=== PATIENT | female | born 1950 | race Caucasian/White ===

== ENCOUNTER 2020-05-26 13:00 | Outpatient (REF) | payer MEDICARE, OTHER, SELFPAY ==
--- NOTE | 2020-05-26 13:45 | XR_ITS ---
EXAMINATION: XR CHEST CLINICAL INFORMATION: Chest pain. COMPARISON: Chest 11/20/2019 TECHNIQUE: 2 views of the chest were obtained. FINDINGS: The lungs are well-expanded and clear of acute process. The heart size and pulmonary vascularity is normal. No gross bony abnormality seen. XR/XR chest 2V IMPRESSION: Unremarkable chest exam
== END 2020-05-26 13:01 | disposition home or self-care (01) ==
LOC: HO.LAB 13:00
PROVIDERS: PCP Internal Medicine; Referring Provider Hospitalist; Visit Provider Hospitalist
DX: J98.4 Other disorders of lung (principal); J45.909 Unspecified asthma, uncomplicated
CPT/HCPCS: 71046; 99212

== ENCOUNTER 2020-09-10 13:26 | Outpatient (REF) | payer OTHER, SELFPAY ==
--- NOTE | ~2020-09-10 | MM_ITS ---
EXAMINATION: MM SCREENING DIGITAL BREAST TOMOSYNTHESIS, BILATERAL CLINICAL INFORMATION: Screening. Asymptomatic. The lifetime risk of breast cancer based on the Tyrer-Cuzick Model is 4.2%. COMPARISON: Mammography: 05/15/2019 and studies dating back to 02/23/2010 TECHNIQUE: Digital breast tomosynthesis is performed in both the craniocaudal and mediolateral oblique views along with computer-aided detection (CAD). Synthesized 2D images are generated from the tomosynthesis. FINDINGS: The breasts are heterogeneously dense, which may obscure small masses (ACR BI-RADS breast composition Category c). There is stable appearance of the right breast with no new suspicious findings. Within the central and inferior aspect of the left breast there are 2 partially circumscribed densities approximately 5 cm from the nipple. These are only seen on mediolateral oblique projection. One measures approximately 8 x 5 mm in size and the other measures approximately 6 mm in diameter. Spot compression films are recommended. MM/MM tomosynthesis screening BI IMPRESSION: Left breast densities for further evaluation as described. ASSESSMENT: BI-RADS 0: Incomplete - Need Additional Imaging Evaluation RECOMMENDATION: 1. Additional views of the left breast. 2. Targeted ultrasound if warranted after review of the additional views. 3. Radiology department staff will contact the patient for additional imaging. This patient's information was entered into a reminder system with a target due date for their next mammogram.
== END 2020-09-10 13:27 | disposition home or self-care (01) ==
LOC: HO.MAMMO 13:26
PROVIDERS: PCP Internal Medicine; Visit Provider Internal Medicine
DX: Z12.31 Encounter for screening mammogram for malignant neoplasm of breast (principal)
CPT/HCPCS: 77063; 77067

== ENCOUNTER 2020-09-18 08:52 | Outpatient (REF) | payer MEDICARE, OTHER, SELFPAY ==
--- NOTE | ~2020-09-18 | MM_ITS ---
EXAMINATION: MM DIAGNOSTIC DIGITAL BREAST TOMOSYNTHESIS, LEFT US DIAGNOSTIC ULTRASOUND BREAST, LEFT CLINICAL INFORMATION: Recall from screening for asymmetric densities on MLO view central and lower breast. No CC correlate. TC score 4%. COMPARISON: Mammography: 09/10/2020 and prior studies dating back to 06/28/2012 TECHNIQUE: Digital breast tomosynthesis is performed. 2D images are generated from the tomosynthesis. The following views are obtained: Spot MLO, ML x2. Ultrasound left breast is performed circumferentially with additional targeting in the area of recent mammographic concern. Grayscale imaging and color Doppler are performed without and with harmonics. FINDINGS: The breasts are heterogeneously dense, which may obscure small masses (ACR BI-RADS breast composition Category c). The additional views show scattered fibroglandular tissue similar to multiple prior exams dating back to 2012. There is no developing density or interval mass or architectural abnormality. Ultrasound left breast demonstrates no cystic or solid mass or architectural abnormality. No focal duct ectasia. No skin thickening. Results are discussed with the patient at time of visit. MM/MM tomosynthesis added views L IMPRESSION: 1. Additional views show fibroglandular pattern similar to prior exams. 2. Unremarkable left breast ultrasound. ASSESSMENT: BI-RADS 2: Benign RECOMMENDATION: Routine annual mammography screening. This patient's information was entered into a reminder system with a target due date for their next mammogram.
== END 2020-09-18 08:53 | disposition home or self-care (01) ==
LOC: HO.MAMMO 08:52
PROVIDERS: Visit Provider Internal Medicine
DX: R92.2 Inconclusive mammogram (principal)
CPT/HCPCS: 76642; 77061; 77065

== ENCOUNTER 2021-01-15 10:30 | Outpatient (REF) | payer MEDICARE, OTHER, SELFPAY ==
[2021-01-15 14:01] LABS: Hematocrit 37.3 % (37-47); Hemoglobin 12.1 g/dl (12.0-16.0); Mean Corpuscular HGB Conc 32.4 g/dl (31.0-35.0); Mean Corpuscular Hemoglobin 29.4 pg (27.0-33.0); Mean Corpuscular Volume 90.8 fL (80-98); Mean Platelet Volume 11.2 fL (9.4-12.3); Platelet Count 281 X10*3/uL (160-400); Red Blood Count 4.11 X10*6/uL (4.20-5.50); Red Cell Distribution Width 13.3 % (11.0-16.0); White Blood Count 4.8 X10*3/uL (4.8-10.8)
[2021-01-15 14:04] LABS: Appearance Urine CLEAR; Color Urine YELLOW; Glucose Urine UA NEG (NEG); Leukocyte Esterase Urine 1+ (NEG); Nitrite Urine NEG (NEG); Urine Blood NEG (NEG); Urine Ketones NEG (NEG); Urine Protein NEG (NEG-TRACE)
[2021-01-15 14:19] LABS: RBC Urine 0 /HPF (0); Squamous Epithelial Cell Urine 2+ /LPF
[2021-01-15 15:22] LABS: Alanine Aminotransferase 15 U/L (0-31); Albumin Level 4.3 g/dL (3.5-5.0); Alkaline Phosphatase 57 U/L (39-117); Anion Gap 12 (12-20); Aspartate Amino Transferase 20 U/L (5-31); Bilirubin Total 0.8 mg/dL (0.0-1.0); Blood Urea Nitrogen 25 mg/dL (9-16); Calcium 9.4 mg/dL (8.4-10.2); Carbon Dioxide 26 mmol/L (22-29); Chloride 108 mmol/L (96-108); Cholesterol 223 mg/dL; Estimated Glomerular Filt Rate 58; Glucose Fasting 77 mg/dL (60-99); HDL Cholesterol 112 mg/dL; LDL Cholesterol Calculated 104 mg/dl; Potassium 4.5 mmol/L (3.3-5.1); Sodium 141 mmol/L (135-145); Total Protein 6.6 g/dL (6.5-8.0); Triglycerides 39 mg/dL
[2021-01-15 15:43] LABS: TSH reflex Free T4 2.08 uIU/mL (0.32-4.0)
== END 2021-01-15 10:31 | disposition home or self-care (01) ==
LOC: HO.HMGCLDS 10:30
PROVIDERS: PCP Internal Medicine; Visit Provider Internal Medicine
DX: Z00.00 Encounter for general adult medical examination without abnormal findings (principal); E78.00 Pure hypercholesterolemia, unspecified; J45.909 Unspecified asthma, uncomplicated; J98.4 Other disorders of lung
CPT/HCPCS: 36415; 80053; 80061; 81001; 84443; 85027

== ENCOUNTER → 2021-03-01 12:54 | Outpatient (BNVA) | payer MEDICARE, OTHER, SELFPAY | PROVIDERS: PCP Internal Medicine; Visit Provider Hospitalist | DX: J45.909 Unspecified asthma, uncomplicated (principal); J98.4 Other disorders of lung; J30.9 Allergic rhinitis, unspecified | CPT/HCPCS: 99212 ==

== ENCOUNTER 2021-04-16 14:46 | Outpatient (REF) | payer MEDICARE, OTHER, SELFPAY ==
[2021-04-16 16:25] LABS: Influenza A PCR NEGATIVE (Negative); Influenza B PCR NEGATIVE (Negative); Resp Syncy Virus RNA Qual PCR NEGATIVE (Negative); SARS COV2 PCR INHOUSE NEGATIVE (Negative)
== END 2021-04-16 14:47 | disposition home or self-care (01) ==
LOC: HO.LNP 14:46
PROVIDERS: Visit Provider Internal Medicine
DX: Z20.822 Contact with and (suspected) exposure to COVID-19 (principal); R43.9 Unspecified disturbances of smell and taste
CPT/HCPCS: 0241U

== ENCOUNTER 2021-09-13 11:06 | Outpatient (REF) | payer MEDICARE, OTHER, SELFPAY ==
--- NOTE | ~2021-09-13 | MM_ITS ---
EXAMINATION: MM SCREENING DIGITAL BREAST TOMOSYNTHESIS, BILATERAL CLINICAL INFORMATION: Screening. Asymptomatic. The lifetime risk of breast cancer based on the Tyrer-Cuzick Model is 5%. COMPARISON: Mammography: 09/18/2020, 09/10/2020, 05/15/2019, 05/14/2018, 05/11/2017 TECHNIQUE: Digital breast tomosynthesis is performed in both the craniocaudal and mediolateral oblique views along with computer-aided detection (CAD). Synthesized 2D images are generated from the tomosynthesis. Additional left MLO view is provided. FINDINGS: There are scattered areas of fibroglandular density (ACR BI-RADS breast composition Category b). There are no significant masses, abnormal calcifications, or other abnormalities. Parenchymal pattern is similar to prior studies. No developing density or architectural abnormality. The axilla and skin contours are unremarkable. MM/MM tomosynthesis screening BI IMPRESSION: No mammographic evidence of malignancy. ASSESSMENT: BI-RADS 1: Negative RECOMMENDATION: Routine annual mammography screening. This patient's information was entered into a reminder system with a target due date for their next mammogram.
== END 2021-09-13 11:07 | disposition home or self-care (01) ==
LOC: HO.MAMMO 11:06
PROVIDERS: PCP Internal Medicine; Visit Provider Internal Medicine
DX: Z12.31 Encounter for screening mammogram for malignant neoplasm of breast (principal)
CPT/HCPCS: 77063; 77067

== ENCOUNTER 2022-01-18 09:09 | Outpatient (REF) | payer MEDICARE, OTHER, SELFPAY ==
[2022-01-18 12:11] LABS: Hematocrit 36.5 % (37.0-47.0); Mean Corpuscular HGB Conc 32.9 g/dl (31.0-35.0); Mean Corpuscular Hemoglobin 29.4 pg (27.0-33.0); Mean Corpuscular Volume 89.5 fL (80.0-98.0); Mean Platelet Volume 10.4 fL (9.4-12.3); Platelet Count 276 X10*3/uL (160-400); Red Blood Count 4.08 X10*6/uL (4.20-5.50); Red Cell Distribution Width 12.4 % (11.0-16.0); White Blood Count 4.7 X10*3/uL (4.8-10.8)
[2022-01-18 12:25] LABS: Alanine Aminotransferase 14 U/L (0-31); Albumin Level 4.1 g/dL (3.5-5.0); Alkaline Phosphatase 57 U/L (39-117); Anion Gap 13 (12-20); Aspartate Amino Transferase 18 U/L (5-31); Bilirubin Total 0.6 mg/dL (0.0-1.0); Blood Urea Nitrogen 29 mg/dL (9-16); Calcium 9.8 mg/dL (8.4-10.2); Carbon Dioxide 24 mmol/L (22-29); Chloride 107 mmol/L (96-108); Cholesterol 221 mg/dL; Estimated Glomerular Filt Rate 44; Glucose Fasting 83 mg/dL (60-99); HDL Cholesterol 75 mg/dL; LDL Cholesterol Calculated 133 mg/dl; Potassium 4.4 mmol/L (3.3-5.1); Sodium 140 mmol/L (135-145); Total Protein 6.6 g/dL (6.5-8.0); Triglycerides 68 mg/dL
[2022-01-18 12:37] LABS: Vitamin D 25-OH Total 59.4 ng/mL (>30)
== END 2022-01-18 09:10 | disposition home or self-care (01) ==
LOC: HO.HMGCLDS 09:09
PROVIDERS: PCP Internal Medicine; Visit Provider Internal Medicine
DX: Z00.00 Encounter for general adult medical examination without abnormal findings (principal); E78.00 Pure hypercholesterolemia, unspecified; M85.80 Other specified disorders of bone density and structure, unspecified site
CPT/HCPCS: 36415; 80053; 80061; 82306; 85027

== ENCOUNTER 2022-02-11 14:42 | Outpatient (REF) | payer MEDICARE, OTHER, SELFPAY ==
--- NOTE | ~2022-02-11 | US_ITS ---
EXAMINATION: US RETROPERITONEAL LIMITED (RENAL ONLY) CLINICAL INFORMATION: Chronic kidney disease, stage 3, unspecified. COMPARISON: None TECHNIQUE: Real-time imaging of the kidneys. FINDINGS: RIGHT KIDNEY: 10.1 x 4.6 x 4.9 cm (SAG x AP x TRV). The kidney is normal in size, contour, and echogenicity. Renal cortical thickness is normal. No focal parenchymal lesions or hydronephrosis. A cortically based echogenic focus medially in the mid pole measures a 0.2 cm. Mild pelviectasis/extra renal pelvis. LEFT KIDNEY: 9.0 x 3.5 x 4.3 cm (SAG x AP x TRV). The kidney is normal in size, contour, and echogenicity. Renal cortical thickness is normal. No calculi or focal parenchymal lesions. No hydronephrosis. US/US renal BI IMPRESSION: Nonobstructing tiny right intrarenal calculus/calcification. Mild right pelviectasis/extra renal pelvis.
== END 2022-02-11 14:43 | disposition home or self-care (01) ==
LOC: HO.US 14:42
PROVIDERS: Visit Provider Internal Medicine
DX: N18.30 Chronic kidney disease, stage 3 unspecified (principal)
CPT/HCPCS: 76775

== ENCOUNTER 2022-02-28 14:12 | Outpatient (REF) | payer MEDICARE, OTHER, SELFPAY ==
--- NOTE | ~2022-02-28 | XR_ITS ---
EXAMINATION: XR CHEST CLINICAL INFORMATION: Follow-up COMPARISON: May 26, 2020 TECHNIQUE: 2 views of the chest were obtained. FINDINGS: No significant abnormality is noted involving the heart, lungs, mediastinum, bony thorax or soft tissues. XR/XR chest 2V IMPRESSION: No acute disease.
== END 2022-02-28 14:13 | disposition home or self-care (01) ==
LOC: HO.XRAY 14:12
PROVIDERS: PCP Internal Medicine; Visit Provider Hospitalist
DX: J98.4 Other disorders of lung (principal); J45.909 Unspecified asthma, uncomplicated; Z79.899 Other long term (current) drug therapy
CPT/HCPCS: 71046; 99212

== ENCOUNTER 2022-03-08 09:35 | Outpatient (REF) | payer MEDICARE, OTHER, SELFPAY ==
[2022-03-08 12:13] LABS: Anion Gap 15 (12-20); Blood Urea Nitrogen 27 mg/dL (9-16); Calcium 9.5 mg/dL (8.4-10.2); Carbon Dioxide 24 mmol/L (22-29); Chloride 104 mmol/L (96-108); Estimated Glomerular Filt Rate 50; Glucose Random 84 mg/dL (60-115); Potassium 4.4 mmol/L (3.3-5.1); Sodium 139 mmol/L (135-145)
[2022-03-08 12:16] LABS: Appearance Urine Clear; Color Urine Yellow; Glucose Urine UA Negative (Negative); Leukocyte Esterase Urine Small (1+) (Negative); Nitrite Urine Negative (Negative); Specific Gravity - Urine 1.015 (1.005-1.025); UMIC TRIGGER UA YES; Urine Blood Negative (Negative); Urine Ketones Negative (Negative); Urine Protein Negative (Neg-Trace)
[2022-03-08 12:44] LABS: Bacteria Urine None Seen (None Seen); Hyaline Casts Urine 0-2 /LPF (0-2); RBC Urine 0-2 /HPF (0-2); Squamous Epithelial Cell Urine 0-2 /HPF (0-2); WBC Urine 0-5 /HPF (0-5)
== END 2022-03-08 09:36 | disposition home or self-care (01) ==
LOC: HO.HMGCLDS 09:35
PROVIDERS: PCP Internal Medicine; Visit Provider Internal Medicine
DX: I12.9 Hypertensive chronic kidney disease with stage 1 through stage 4 chronic kidney disease, or unspecified chronic kidney disease (principal); N18.30 Chronic kidney disease, stage 3 unspecified
CPT/HCPCS: 36415; 80048; 81001

== ENCOUNTER 2022-04-21 10:05 | Outpatient (REF) | payer MEDICARE, OTHER, SELFPAY ==
[2022-04-21 11:47] LABS: Alanine Aminotransferase 13 U/L (0-31); Albumin Level 4.2 g/dL (3.5-5.0); Alkaline Phosphatase 69 U/L (39-117); Anion Gap 11 (12-20); Aspartate Amino Transferase 19 U/L (5-31); Bilirubin Total 0.6 mg/dL (0.0-1.0); Blood Urea Nitrogen 25 mg/dL (9-16); Calcium 9.7 mg/dL (8.4-10.2); Carbon Dioxide 27 mmol/L (22-29); Chloride 104 mmol/L (96-108); Cholesterol 219 mg/dL; Estimated Glomerular Filt Rate 48; Glucose Fasting 94 mg/dL (60-99); HDL Cholesterol 86 mg/dL; LDL Cholesterol Calculated 121 mg/dl; Potassium 4.1 mmol/L (3.3-5.1); Sodium 138 mmol/L (135-145); Total Protein 6.8 g/dL (6.5-8.0); Triglycerides 61 mg/dL
== END 2022-04-21 10:06 | disposition home or self-care (01) ==
LOC: HO.HMGCLDS 10:05
PROVIDERS: PCP Internal Medicine; Visit Provider Internal Medicine
DX: E78.00 Pure hypercholesterolemia, unspecified (principal); I10 Essential (primary) hypertension
CPT/HCPCS: 36415; 80053; 80061

== ENCOUNTER → 2022-08-18 09:10 | Outpatient (BNVA) | payer MEDICARE, OTHER, SELFPAY | PROVIDERS: PCP Internal Medicine; Visit Provider Nurse Practitioner Family | DX: N20.0 Calculus of kidney (principal) | CPT/HCPCS: 99202 ==

== ENCOUNTER → 2022-08-25 13:10 | Outpatient (BNVA) | payer MEDICARE, OTHER, SELFPAY | PROVIDERS: PCP Internal Medicine; Visit Provider Hospitalist | DX: J45.909 Unspecified asthma, uncomplicated (principal); J98.4 Other disorders of lung; R01.1 Cardiac murmur, unspecified | CPT/HCPCS: 99212 ==

== ENCOUNTER 2022-09-15 12:47 | Outpatient (REF) | payer MEDICARE, OTHER, SELFPAY ==
--- NOTE | ~2022-09-15 | MM_ITS ---
EXAMINATION: MM SCREENING DIGITAL BREAST TOMOSYNTHESIS, BILATERAL CLINICAL INFORMATION: Screening. Asymptomatic. The lifetime risk of breast cancer based on the Tyrer-Cuzick Model is 5.1%. COMPARISON: Mammography: September 13, 2021 and studies dating back to February 04, 2016 TECHNIQUE: Digital breast tomosynthesis is performed in both the craniocaudal and mediolateral oblique views along with computer-aided detection (CAD). Synthesized 2D images are generated from the tomosynthesis. FINDINGS: The breasts are heterogeneously dense, which may obscure small masses (ACR BI-RADS breast composition Category c). There are no significant masses, abnormal calcifications, or other abnormalities. MM/MM tomosynthesis screening BI IMPRESSION: No significant changes from prior exam. ASSESSMENT: BI-RADS 1: Negative RECOMMENDATION: Routine annual mammography screening. This patient's information was entered into a reminder system with a target due date for their next mammogram.
== END 2022-09-15 12:48 | disposition home or self-care (01) ==
LOC: HO.MAMMO 12:47
PROVIDERS: PCP Internal Medicine; Visit Provider Internal Medicine
DX: Z12.31 Encounter for screening mammogram for malignant neoplasm of breast (principal)
CPT/HCPCS: 77063; 77067

== ENCOUNTER 2022-09-15 14:31 | Outpatient (REF) | payer MEDICARE, OTHER, SELFPAY ==
--- NOTE | ~2022-09-15 | US_ITS ---
EXAMINATION: US RETROPERITONEAL LIMITED (RENAL ONLY) CLINICAL INFORMATION: Calculus of kidney. COMPARISON: Ultrasound retroperitoneal limited (renal only) 02/11/2022. TECHNIQUE: Real-time imaging of the kidneys. FINDINGS: RIGHT KIDNEY: 9.6 x 3.7 x 4.6 cm (SAG x AP x TRV). The kidney is normal in size, contour, and echogenicity. Renal cortical thickness is normal. No calculi or focal parenchymal lesions. No hydronephrosis. 5 mm linear echogenic focus without shadowing or 2.0 in the right upper pole may reflect a small calculus or vascular calcification. LEFT KIDNEY: 8.3 x 4.4 x 3.9 cm (SAG x AP x TRV). The kidney is normal in size, contour, and echogenicity. Renal cortical thickness is normal. No calculi or focal parenchymal lesions. No hydronephrosis. US/US renal BI IMPRESSION: 5 mm linear echogenic focus in the upper right kidney may reflect a small calculus or vascular calcification. No hydronephrosis.
== END 2022-09-15 14:32 | disposition home or self-care (01) ==
LOC: HO.US 14:31
PROVIDERS: PCP Internal Medicine; Visit Provider Internal Medicine
DX: Z12.31 Encounter for screening mammogram for malignant neoplasm of breast (principal); N20.0 Calculus of kidney; I12.9 Hypertensive chronic kidney disease with stage 1 through stage 4 chronic kidney disease, or unspecified chronic kidney disease; N18.30 Chronic kidney disease, stage 3 unspecified; E78.00 Pure hypercholesterolemia, unspecified
CPT/HCPCS: 76775; 77063; 77067

== ENCOUNTER 2022-11-04 11:35 | Outpatient (REF) | payer MEDICARE, OTHER, SELFPAY | END 2022-11-04 11:36 | disposition home or self-care (01) | LOC: HO.HMGCLDS 11:35 | PROVIDERS: PCP Internal Medicine; Visit Provider Internal Medicine | DX: J45.909 Unspecified asthma, uncomplicated (principal); I10 Essential (primary) hypertension; E78.00 Pure hypercholesterolemia, unspecified | CPT/HCPCS: 36415; 80053; 80061; 84443; 85025 ==

== ENCOUNTER 2022-11-07 11:17 | Outpatient (AMB) | payer MEDICARE, OTHER, SELFPAY ==
[2022-11-07 11:19] VITALS: BP 118/74; PULSE 68; O2SAT 95; BMI 20.5
--- NOTE | 2022-11-07 11:19 | MHC.PC.OV ---
Vital Signs 11/07/22 11:19 Height 5 ft 3 in Weight 116 lb BMI 20.5 BP 118/74 Blood Pressure Location Lt brachial Position Sitting Pulse 68 Pulse Source Pulse Oximeter Pulse Oximetry (%) 95 Oxygen Delivery Method Room Air Intake Visit Reasons: 6 month follow up Hyperlipidemia Intake Note: Pt is here today for 6 months follow up visit . Allergies seasonal Adverse Reaction (Severe, Uncoded 11/07/22 11:19) seasonal allergies Tobacco use date assessed: 11/07/22 Fall risk assessment: No Falls in past year Last assessed Fall Risk: 11/07/22 Dental Screening Dental Screen Date: 11/07/22 Did you have a dental visit in the last 12 months?: Yes Did you have a dental problem in the last 6 months where you did not have access to dental care?: No Was dental information given to patient?: Patient has dentist HPI 6 month follow up Hyperlipidemia HPI Details Pt presents for f/u hyperlipid, stable on statin. Pt c/o anxiety due to her daughter in law and son in the long-term. [facility] Medical History Annual physical exam Asthma Chronic allergic rhinitis Chronic restrictive lung disease Hypercholesteremia Mammogram normal Murmur Normal colonoscopy Osteopenia Family History Father Hypertension Mother No problems noted. Brother Mental health disorder Social History Housing: House Patient Tobacco Use Status: Never used Tobacco e-Cigarette/Vaping Use: Never Used Current occupational status: retired Cognitive needs: No Hearing needs: No Vision needs: Yes Questionnaire PHQ-9 Over the last 2 weeks, how often have you been bothered by any of the following problems? 1. Little interest or pleasure in doing things: not at all 2. Feeling down, depressed, or hopeless: not at all 3. Trouble falling or staying asleep, or sleeping too much: more than half the days 4. Feeling tired or having little energy: not at all 5. Poor appetite or overeating: not at all 6. Feeling bad about yourself - or that you are a failure or have let yourself or your family down: not at all 7. Trouble concentrating on things, such as reading the newspaper or watching television: not at all 8. Moving or speaking so slowly that other people could have noticed. Or the opposite - being so fidgety or restless that you have been moving around a lot more than usual: not at all 9. Thoughts that you would be better off or of hurting yourself in some way: not at all Total score: 2 Depression Screening Interpretation: Negative Source: Developed by Drs. Bacilio Broderick, Sherin Ohara, Sameer Saeed and colleagues, with an educational lópez from [employer]. Thrive Questionnaire Date Thrive assessed: 11/07/22 I am a: Patient What is your living situation today?: I have a steady place to live Within the past 12 months, did the food you bought not last and you didn't have the money to get more?: Never true Within the past 12 months, did you worry whether your food would run out before you got money to buy more?: Never true Do you have trouble paying for medicines?: No Do you have trouble getting transportation to medical appointments?: No Do you have trouble paying your heating and electricity bill?: No Do you have trouble taking care of your child, family member or friend?: No Do you have trouble with day-to-day activities such as bathing, preparing meals, shopping, managing finances, etc.?: No Are you currently unemployed and looking for a job?: No Are you interested in more education?: No Please select the resources that you would like help with: None Currently or been in a relationship where the following occur: no concerns reported AUDIT C Alcohol Use Questionnaire (AUDIT-C) 1. How often do you have a drink containing alcohol?: Never 3. How often do you have six or more drinks on one occasion?: Never Total Score: 0 SALENA-7 AMB Questionnaire SALENA-7 Date SALENA - 7 assessed: 11/07/22 Feeling nervous, anxious, or on edge: 0 = Not at all Not being able to stop or control worryin = Not at all Worrying too much about different things: 0 = Not at all Trouble relaxin = Not at all Being so restless that it is hard to sit still: 0 = Not at all Becoming easily annoyed or irritable: 0 = Not at all Feeling afraid as if something awful might happen: 0 = Not at all Total SALENA-7 score (0-4 normal; 5-9 mild; 10-14 moderate; 15-21 severe): 0 Source: Developed by Drs. Bacilio Broderick, Sherin Ohara, Sameer Saeed and colleagues, with an educational lópez from [employer]. Physical exam (Primary Care) Vital Signs: Last Vital Signs Pulse 68 11/07/22 11:19 BP 118/74 11/07/22 11:19 Pulse Ox 95 11/07/22 11:19 Oxygen Delivery Method Room Air 11/07/22 11:19 BMI result Body Mass Index 20.5 Tobacco/Smoking Status: Tobacco use Status Tobacco use date assessed 11/07/22 11/07/22 11:26 Patient Tobacco Use Status Never used Tobacco 11/07/22 11:26 e-Cigarette/Vaping Use Never Used 11/07/22 11:26 PHQ-9: PHQ-9 Score PHQ-9: Total score 2 11/07/22 11:28 Depression Screening Interpretation: Negative Thrive Assessment: Date of Thrive Assessment Date Thrive assessed 11/07/22 11/07/22 11:28 Currently or been in a relationship where the following occur: no concerns reported Const General: no acute distress HENMT Head: Yes normal to inspection Ears: hearing grossly normal bilaterally Mouth: Normal oral and palatal mucosa present Throat: Yes posterior oropharynx normal Eyes General: appearance normal, both eyes and all related structures Neck Neck: Yes no lymphadenopathy and Yes supple Resp Effort & Inspection: normal respiratory effort Auscultation: clear to auscultation bilaterally Cardio Rhythm: regular rhythm Heart sounds: S1 normal heart sound present and S2 normal heart sound present GI Inspection: Yes normal to inspection Percussion: Yes normal to percussion Assessment and Plan Assessment & Plan (1) Hypercholesteremia: Code(s): E78.00 - Pure hypercholesterolemia, unspecified Plan: cont statin (2) Chronic restrictive lung disease: Comment: f/u pulmonology Code(s): J98.4 - Other disorders of lung (3) Anemia: Code(s): D64.9 - Anemia, unspecified Plan: check Iron and vit B 12, monitor CBC in 3 months (4) Nephrolithiasis: Comment: small nonobstructing kidney stone on US 02/19, recheck in 6 months Code(s): N20.0 - Calculus of kidney (5) CKD (chronic kidney disease) stage 3, GFR 30-59 ml/min: Code(s): N18.30 - Chronic kidney disease, stage 3 unspecified Plan: monitor renal function (6) Chronic allergic rhinitis: Code(s): J30.9 - Allergic rhinitis, unspecified (7) Anxiety: Comment: f/u with psychiatry Code(s): F41.9 - Anxiety disorder, unspecified Orders: Orders Vitamin B12 and Folate Today D64.9 - Anemia, unspecified IRON PROFILE Today D64.9 - Anemia, unspecified Vitamin B6 Today D64.9 - Anemia, unspecified Comprehensive Met. Panel 3 Months D64.9 - Anemia, unspecified, J98.4 - Other disorders of lung, N18.30 - Chronic kidney disease, stage 3 unspecified IRON PROFILE 3 Months D64.9 - Anemia, unspecified, J98.4 - Other disorders of lung, N18.30 - Chronic kidney disease, stage 3 unspecified Complete Blood Count Auto Diff 3 Months D64.9 - Anemia, unspecified, N18.30 - Chronic kidney disease, stage 3 unspecified Coding Level of Care Code Est Pt Level 4 (81519) Diagnoses Hypercholesteremia E78.00 Chronic restrictive lung disease J98.4 Anemia D64.9 Nephrolithiasis N20.0 CKD (chronic kidney disease) stage 3, GFR 30-59 ml/min N18.30 Chronic allergic rhinitis J30.9 Anxiety F41.9
== END 2022-11-07 12:00 | disposition home or self-care (01) ==
PROVIDERS: Visit Provider Internal Medicine
DX: N18.30 Chronic kidney disease, stage 3 unspecified (principal); F41.9 Anxiety disorder, unspecified; E78.00 Pure hypercholesterolemia, unspecified; J98.4 Other disorders of lung; D64.9 Anemia, unspecified; N20.0 Calculus of kidney; J30.9 Allergic rhinitis, unspecified
CPT/HCPCS: 99214

== ENCOUNTER 2022-11-07 11:58 | Outpatient (REF) | payer MEDICARE, OTHER, SELFPAY ==
[2022-11-13 13:58] LABS: Vitamin B6 132.6 ng/mL (2.1-21.7)
== END 2022-11-07 11:59 | disposition home or self-care (01) ==
LOC: HO.HMGCLDS 11:58
PROVIDERS: PCP Internal Medicine; Visit Provider Internal Medicine
DX: D64.9 Anemia, unspecified (principal)
CPT/HCPCS: 36415; 82607; 82746; 83540; 84207

== ENCOUNTER 2022-12-02 13:22 | Outpatient (REF) | payer MEDICARE, OTHER, SELFPAY ==
[2022-12-02 16:27] LABS: Appearance Urine Clear; Color Urine Yellow; Glucose Urine UA Negative (Negative); Leukocyte Esterase Urine Small (1+) (Negative); Nitrite Urine Negative (Negative); PH 5.5 (5.0-9.0); UMIC TRIGGER UA YES; Urine Blood Negative (Negative); Urine Ketones Trace mg/dL (Negative); Urine Protein Negative (Neg-Trace)
[2022-12-02 16:49] LABS: Bacteria Urine None Seen (None Seen); Squamous Epithelial Cell Urine 0-2 /HPF (0-2); WBC Urine 0-5 /HPF (0-5)
[2022-12-02 16:51] LABS: RBC Urine 0-2 /HPF (0-2)
== END 2022-12-02 13:23 | disposition home or self-care (01) ==
LOC: HO.HMGCLDS 13:22
PROVIDERS: PCP Internal Medicine; Visit Provider Internal Medicine
DX: N18.30 Chronic kidney disease, stage 3 unspecified (principal); R82.90 Unspecified abnormal findings in urine
CPT/HCPCS: 81001; 87086

== ENCOUNTER 2023-01-10 10:17 | Outpatient (REF) | payer MEDICARE, OTHER, SELFPAY ==
[2023-01-10 13:33] LABS: MANUAL DIFF FLAG NO
[2023-01-10 13:51] LABS: Basophils Absolute Auto 0.1 X10*3/uL (0.0-0.2); Basophils Percent Auto 1.4 % (0-2); Eosinophils Absolute Auto 0.5 X10*3/uL (0.0-0.4); Eosinophils Percent Auto 8.9 % (0-4); Hemoglobin 12.1 g/dl (12.0-16.0); Imm Gran Abs Auto 0.01 X10*3/uL (0.00-0.03); Imm Gran Pct Auto 0.2 % (0.0-0.4); Lymphocytes Absolute Auto 1.6 X10*3/uL (1.2-4.9); Lymphocytes Percent Auto 31.3 % (20-40); Mean Corpuscular HGB Conc 31.8 g/dl (31.0-35.0); Mean Corpuscular Hemoglobin 27.9 pg (27.0-33.0); Mean Corpuscular Volume 87.6 fL (80.0-98.0); Monocytes Absolute Auto 0.5 X10*3/uL (0.1-1.2); Monocytes Percent Auto 9.7 % (2-11); Neutrophils Absolute Auto 2.5 x10*3/uL (2.0-8.3); Neutrophils Percent Auto 48.5 % (45-73); Platelet Count 280 X10*3/uL (160-400); Red Blood Count 4.34 X10*6/uL (4.20-5.50); Red Cell Distribution Width 13.4 % (11.0-16.0); White Blood Count 5.1 X10*3/uL (4.8-10.8)
[2023-01-10 14:04] LABS: Iron 84 mcg/dL (30-160); Percent Iron Saturation 29 % (15-50); Total Iron Binding Capacity 286 mcg/dL (228-428); Unsaturated Iron Binding 202 ug/dL
[2023-01-10 14:34] LABS: Folate 12.2 ng/mL (> or = 4.0); Vitamin B12 371 pg/mL (200-900)
== END 2023-01-10 10:18 | disposition home or self-care (01) ==
LOC: HO.HMGCLDS 10:17
PROVIDERS: PCP Internal Medicine; Visit Provider Internal Medicine
DX: D64.9 Anemia, unspecified (principal)
CPT/HCPCS: 36415; 82607; 82746; 83540; 85025

== ENCOUNTER 2023-01-13 11:04 | Outpatient (AMB) | payer MEDICARE, OTHER, SELFPAY ==
--- NOTE | 2023-01-13 11:19 | AM.OFFWIN_ITS ---
Intake Vital Signs 01/13/23 11:22 Height 5 ft 3 in Weight 118 lb BMI 20.9 BP 112/64 Blood Pressure Location Lt brachial Position Sitting Pulse 72 Pulse Source Pulse Oximeter Temp 97.9 F Temp Source Oral Pulse Oximetry (%) 98 Oxygen Delivery Method Room Air Intake Visit Reasons: EST/sinus infection Intake Note: Patient here for sinus infection for about 2 weeks. she states she has a hx of sinus issues. Patient Tobacco Use Status: Never used Tobacco Allergies seasonal Adverse Reaction (Severe, Uncoded 01/13/23 11:23) seasonal allergies Do you need a note to return to daycare/school/sports/work: No HPI HPI Comments History of Present Illness Details This is a 72-year-old female who presents to the office today for sick visit. Patient complaining of sinus pain/pressure and nasal congestion x3 weeks. Patient states she has a history of sinus issues in usually gets a sinus infection every fall. She states she has been utilizing [id number] antihistamines and decongestants without much relief. Patient states she started to have significant green rhinorrhea today, so she decided to come to the urgent care for further evaluation. She denies any fevers or chills. She denies any chest pain or shortness of breath. She denies any abdominal pain or nausea/vomiting/diarrhea. Patient is otherwise feeling well. [facility] Medical History Annual physical exam Asthma Chronic allergic rhinitis Chronic restrictive lung disease Hypercholesteremia Mammogram normal Murmur Normal colonoscopy Osteopenia Family History Father Hypertension Mother No problems noted. Brother Mental health disorder Social History Housing: House Patient Tobacco Use Status: Never used Tobacco e-Cigarette/Vaping Use: Never Used Current occupational status: retired Cognitive needs: No Hearing needs: No Vision needs: Yes Review of Systems Const All systems reviewed & are unremarkable except as noted in HPI and below Reports no additional complaints Eyes Reports no additional complaints ENT Reports no additional complaints Card Reports no additional complaints Resp Reports no additional complaints GI Reports no additional complaints Reports no additional complaints Musc Reports no additional complaints Skin/Breast Reports system reviewed and no additional complaints, except as documented Neuro Reports no additional complaints Psych Reports no additional complaints Endo Reports no additional complaints Ty/Lymph Reports no additional complaints Aller/Immun Reports no additional complaints Physical Exam Vital Signs: Last Vital Signs Temp 97.9 F 01/13/23 11:22 Pulse 72 01/13/23 11:22 BP 112/64 01/13/23 11:22 Pulse Ox 98 01/13/23 11:22 Oxygen Delivery Method Room Air 01/13/23 11:22 BMI result Body Mass Index 20.9 Const General: cooperative, healthy appearing, no acute distress and well developed Orientation/consciousness: patient oriented x3 HEENT Other: Mild frontal sinus tenderness to palpation. Head: Yes normal to inspection Ears: hearing grossly normal bilaterally General nose exam: Normal external nose present Mouth: Normal oral and palatal mucosa present Eyes General: appearance normal, both eyes and all related structures Pupils: Equal, round and reactive pupils present EOM: EOMs intact bilaterally Resp Effort & Inspection: normal respiratory effort and no respiratory distress Auscultation: clear to auscultation bilaterally Cardio Rate: regular rate Rhythm: regular rhythm Heart sounds: no gallops, no murmurs and no rubs Peripheral pulses: Peripheral pulses 2+ throughout GI Inspection: No distended Palpation (GI): Soft to palpation and nontender Auscultation: normal bowel sounds Skin General skin exam: no rashes or lesions noted Neuro General: patient oriented x3 Cranial nerves: Yes CN's II-XII intact bilaterally and Yes Equal, round and reactive pupils present Gait exam (Neuro): Normal gait present Motor exam (neuro): 5/5 motor strength present throughout Extrem General: Yes normal to inspection, Yes full ROM and Yes no clubbing, cyanosis or edema Psych Appearance: grossly normal Mental Status: mental status grossly normal Assessment & Plan Assessment & Plan (1) Acute bacterial rhinosinusitis: Code(s): J01.90 - Acute sinusitis, unspecified; B96.89 - Other specified bacterial agents as the cause of diseases classified elsewhere Plan: This is a 72-year-old female presenting to the office today complaining of persistent sinus pain/pressure, nasal congestion, and yellow green rhinorrhea x3 weeks. On physical examination, her vital signs are stable, she is overall nontoxic appearing, and her HEENT exam is completely within normal limits with the exception of mild frontal sinus tenderness to palpation. Given duration of patient's symptoms, patient likely has an acute bacterial rhinosinusitis. She was sent home with p.o. amoxicillin clavulanate twice daily times 10 days. Recommended symptomatic management including rest, increased fluids, advil/tylenol for pain/fever, and over the counter throat lozenges/decongestants. Patient advised to follow up here or go to the emergency room for worsening/persistent symptoms. Patient verbalized understanding and is agreeable with the plan. Medications: New amoxicillin-pot clavulanate 875-125 mg 1 tab PO BID 20 tabs 0RF Coding Level of Care Code Est Pt Level 3 (13773) Diagnoses Acute bacterial rhinosinusitis J01.90; B96.89
[2023-01-13 11:22] VITALS: BP 112/64; PULSE 72; TEMP 36.6; O2SAT 98; BMI 20.9
== END 2023-01-13 11:56 | disposition home or self-care (01) ==
PROVIDERS: PCP Internal Medicine; Visit Provider Physician Assistant Medical
DX: J01.90 Acute sinusitis, unspecified (principal); B96.89 Other specified bacterial agents as the cause of diseases classified elsewhere
CPT/HCPCS: 99213

== ENCOUNTER 2023-01-26 11:00 | Outpatient (AMB) | payer MEDICARE, OTHER, SELFPAY ==
--- NOTE | 2023-01-26 11:28 | MHC.OFFWIV ---
Intake Vital Signs 01/26/23 11:29 Height 5 ft 3 in Weight 117 lb BMI 20.7 BP 140/70 H Blood Pressure Location Lt brachial Position Sitting Pulse 72 Pulse Source Pulse Oximeter Temp 97.4 F Temp Source Temporal Artery Scan Pulse Oximetry (%) 95 Oxygen Delivery Method Room Air Intake Visit Reasons: EST/sinus inf already treated not getting better Intake Note: Pt is here c/o on going sinus infection. Pt states she finished her antibiotics and is not feeling better. Patient Tobacco Use Status: Never used Tobacco Allergies seasonal Adverse Reaction (Severe, Uncoded 01/26/23 11:32) seasonal allergies Do you need a note to return to daycare/school/sports/work: No HPI HPI Comments History of Present Illness Details 72-year-old female history of chronic sinusitis that presents for sinus infection. Patient was recently evaluated for course of Augmentin still experiencing significant symptoms. Patient states that typically she gets around of antibiotics and requires around of prednisone which covers her. She is in dorsal signs ingestion pressure drainage [facility] Medical History Annual physical exam Asthma Chronic allergic rhinitis Chronic restrictive lung disease Hypercholesteremia Mammogram normal Murmur Normal colonoscopy Osteopenia Family History Father Hypertension Mother No problems noted. Brother Mental health disorder Social History Housing: House Patient Tobacco Use Status: Never used Tobacco e-Cigarette/Vaping Use: Never Used Current occupational status: retired Cognitive needs: No Hearing needs: No Vision needs: Yes Review of Systems ENT Reports nasal congestion, Reports nasal discharge and Reports sinus pressure Physical Exam Vital Signs: Last Vital Signs Temp 97.4 F 01/26/23 11:29 Pulse 72 01/26/23 11:29 BP 140/70 H 01/26/23 11:29 Pulse Ox 95 01/26/23 11:29 Oxygen Delivery Method Room Air 01/26/23 11:29 BMI result Body Mass Index 20.7 HEENT Other: TTP over maxillary sinuses Assessment & Plan Assessment & Plan (1) Maxillary sinusitis, acute: Code(s): J01.00 - Acute maxillary sinusitis, unspecified Qualifiers: Recurrence: recurrent Qualified Code(s): J01.01 - Acute recurrent maxillary sinusitis Plan: Signs symptoms consistent with rhinosinusitis. Some data suggests course prednisone can help reduce inflammation given this is worker that is definitely reasonable to trial. Discharge instructions, follow up and treatment are discussed with patient in my usual fashion. Alternatives in treatment are also discussed. The patient will return for worsening symptoms or as needed. Advised that any labs/imaging ordered will be followed up on and contact made if further treatment needed. Counseled that patient's condition may require further evaluation and/or treatment. Symptoms of concern for worsening disorder discussed in detail in my customary manner. Patient does verbalize understanding of the plan, there are no apparent barriers to communication. The patient is given the opportunity to ask questions and have them answered to his/her satisfaction Medications: New prednisone 40 mg (2 x 20 mg) PO DAILY 5 days 10 tabs 0RF Coding Level of Care Code Est Pt Level 3 (64778) Diagnoses Acute recurrent maxillary sinusitis J01.01 Recurrence: recurrent
[2023-01-26 11:29] VITALS: BP 140/70; PULSE 72; TEMP 36.3; O2SAT 95; BMI 20.7
== END 2023-01-26 12:14 | disposition home or self-care (01) ==
PROVIDERS: PCP Internal Medicine; Visit Provider Physician Assistant
DX: J01.01 Acute recurrent maxillary sinusitis (principal)
CPT/HCPCS: 99213

== ENCOUNTER 2023-01-30 14:13 | Outpatient (REF) | payer MEDICARE, OTHER, SELFPAY ==
--- NOTE | ~2023-01-30 | US_ITS ---
EXAMINATION: US RETROPERITONEAL LIMITED (RENAL ONLY) CLINICAL INFORMATION: Calculus of kidney. COMPARISON: Ultrasound retroperitoneal limited (renal only) 09/15/2022 and 02/11/2022. TECHNIQUE: Real-time imaging of the kidneys. FINDINGS: RIGHT KIDNEY: 9.8 x 4.5 x 4.4 cm (SAG x AP x TRV). The kidney is normal in size, contour, and echogenicity. Renal cortical thickness is normal. No calculi or focal parenchymal lesions. No hydronephrosis. LEFT KIDNEY: 8.9 x 4.5 x 4.2 cm (SAG x AP x TRV). The kidney is normal in size, contour, and echogenicity. Renal cortical thickness is normal. No calculi or focal parenchymal lesions. No hydronephrosis. US/US renal BI IMPRESSION: Normal renal and bladder ultrasound.
== END 2023-01-30 14:14 | disposition home or self-care (01) ==
LOC: HO.US 14:13
PROVIDERS: PCP Internal Medicine; Visit Provider Nurse Practitioner Family
DX: N20.0 Calculus of kidney (principal)
CPT/HCPCS: 76775

== ENCOUNTER 2023-02-07 13:31 | Outpatient (REF) | payer MEDICARE, OTHER, SELFPAY | END 2023-02-07 13:32 | disposition home or self-care (01) | LOC: HO.HMGCLDS 13:31 | PROVIDERS: PCP Internal Medicine; Visit Provider Internal Medicine | DX: N18.30 Chronic kidney disease, stage 3 unspecified (principal); D64.9 Anemia, unspecified; L65.9 Nonscarring hair loss, unspecified; J98.4 Other disorders of lung | CPT/HCPCS: 36415; 80053; 82306; 83540; 84443; 85025 ==

== ENCOUNTER 2023-02-09 11:32 | Outpatient (AMB) | payer MEDICARE, OTHER, SELFPAY ==
[2023-02-09 11:34] VITALS: BP 124/80; PULSE 65; O2SAT 97; BMI 21.3
--- NOTE | 2023-02-09 11:34 | MHC.PC.OV ---
Vital Signs 02/09/23 11:34 Height 5 ft 3 in Weight 120 lb BMI 21.3 BP 124/80 Blood Pressure Location Lt brachial Position Sitting Pulse 65 Pulse Source Pulse Oximeter Pulse Oximetry (%) 97 Oxygen Delivery Method Room Air Intake Visit Reasons: Annual PE Intake Note: Pt is here today for PE. Allergies seasonal Adverse Reaction (Severe, Uncoded 01/26/23 11:32) seasonal allergies Medication List - Last Reconciled 02/09/23 by Kristine Ribeiro MD azelastine 2 sprays intranasal BID 30 days clonazepam 0.5 mg PO BEDTIME diphenhydramine HCl (Benadryl) 25 mg PO BEDTIME escitalopram oxalate 20 mg PO DAILY fluticasone propionate 50 mcg/actuation 2 sprays intranasal DAILY montelukast 10 mg PO DAILY nitrofurantoin monohyd/m-cryst 100 mg (Macrobid) 100 mg PO Q12H 5 days prednisone 40 mg (2 x 20 mg) PO DAILY 5 days pyridoxine (vitamin B6) 100 mg PO DAILY 90 days simvastatin 20 mg PO DAILY Symbicort 160-4.5 mcg/actuation (budesonide-formoterol) 2 puffs PO BID NS Tobacco use date assessed: 11/07/22 HPI Annual PE HPI Details PATIENT PRESENTS FOR PHYSICAL PFSH Medical History Murmur Normal colonoscopy Osteopenia Mammogram normal Annual physical exam Chronic allergic rhinitis Hypercholesteremia Chronic restrictive lung disease Asthma Family History Father Hypertension Mother No problems noted. Brother Mental health disorder Social History Housing: House Patient Tobacco Use Status: Never used Tobacco e-Cigarette/Vaping Use: Never Used Current occupational status: retired Cognitive needs: No Hearing needs: No Vision needs: Yes Questionnaire Thrive Questionnaire Date Thrive assessed: 11/07/22 SALENA-7 AMB Questionnaire SALENA-7 Date ASLENA - 7 assessed: 11/07/22 Source: Developed by Drs. Bacilio Broderick, Sherin Ohara, Sameer Saeed and colleagues, with an educational lópez from [email or web address]. Review of Systems Const All systems reviewed & are unremarkable except as noted in HPI and below Reports no additional complaints Eyes Reports no additional complaints ENT Reports no additional complaints Card Reports no additional complaints Resp Reports no additional complaints GI Reports no additional complaints Physical exam (Primary Care) Vital Signs: Last Vital Signs Pulse 65 02/09/23 11:34 BP 124/80 02/09/23 11:34 Pulse Ox 97 02/09/23 11:34 Oxygen Delivery Method Room Air 02/09/23 11:34 BMI result Body Mass Index 21.3 Tobacco/Smoking Status: Tobacco use Status Tobacco use date assessed 11/07/22 02/09/23 11:45 Patient Tobacco Use Status Never used Tobacco 02/09/23 11:45 e-Cigarette/Vaping Use Never Used 02/09/23 11:45 Thrive Assessment: Date of Thrive Assessment Date Thrive assessed 11/07/22 02/09/23 11:45 Const General: no acute distress HENMT Ears: hearing grossly normal bilaterally Mouth: Normal oral and palatal mucosa present Neck Neck: Yes no lymphadenopathy and Yes supple Resp Effort & Inspection: normal respiratory effort Auscultation: clear to auscultation bilaterally Cardio Rhythm: regular rhythm Heart sounds: S1 normal heart sound present and S2 normal heart sound present GI Inspection: Yes normal to inspection Palpation (GI): Soft to palpation Percussion: Yes normal to percussion Auscultation: normal bowel sounds Assessment and Plan Assessment & Plan (1) Postmenopausal: Code(s): Z78.0 - Asymptomatic menopausal state Plan: check DEXA (2) Anxiety: Comment: f/u with psychiatry Code(s): F41.9 - Anxiety disorder, unspecified Plan: CONTINUE CURRENT MEDICATIONS (3) CKD (chronic kidney disease) stage 3, GFR 30-59 ml/min: Code(s): N18.30 - Chronic kidney disease, stage 3 unspecified Plan: MONITOR RENAL FUNCTION AND AVOID NSAID (4) Annual physical exam: Code(s): Z00.00 - Encounter for general adult medical examination without abnormal findings Plan: Well-balanced diet regular physical activity discussed with the patient. She is up-to-date with mammogram and colonoscopy (5) Asthma: Code(s): J45.909 - Unspecified asthma, uncomplicated Plan: Continue Symbicort, return in 6 months with a fasting labs before Orders: Orders XR DEXA axial skeleton 6 Months E78.00 - Pure hypercholesterolemia, unspecified, J45.909 - Unspecified asthma, uncomplicated, N18.30 - Chronic kidney disease, stage 3 unspecified, Z78.0 - Asymptomatic menopausal state TSH reflex Free T4 6 Months E78.00 - Pure hypercholesterolemia, unspecified, J45.909 - Unspecified asthma, uncomplicated, N18.30 - Chronic kidney disease, stage 3 unspecified, Z78.0 - Asymptomatic menopausal state Comprehensive [place]. Panel Fast 6 Months E78.00 - Pure hypercholesterolemia, unspecified, J45.909 - Unspecified asthma, uncomplicated, N18.30 - Chronic kidney disease, stage 3 unspecified, Z78.0 - Asymptomatic menopausal state Complete Blood Count Auto Diff 6 Months E78.00 - Pure hypercholesterolemia, unspecified, J45.909 - Unspecified asthma, uncomplicated, N18.30 - Chronic kidney disease, stage 3 unspecified, Z78.0 - Asymptomatic menopausal state Lipid Panel 6 Months E78.00 - Pure hypercholesterolemia, unspecified, J45.909 - Unspecified asthma, uncomplicated, N18.30 - Chronic kidney disease, stage 3 unspecified, Z78.0 - Asymptomatic menopausal state Medications: Discontinued nitrofurantoin monohyd/m-cryst 100 mg (Macrobid) must administer with a meal/food Discontinued Reason: Doctor's Order 100 mg PO Q12H 10 caps 0RF 5 days Coding Level of Care Code Est Pt Prev Care >65y(14846) Diagnoses Postmenopausal Z78.0 Anxiety F41.9 CKD (chronic kidney disease) stage 3, GFR 30-59 ml/min N18.30 Annual physical exam Z00.00 Asthma J45.909
== END 2023-02-09 12:00 | disposition home or self-care (01) ==
PROVIDERS: PCP Internal Medicine; Visit Provider Internal Medicine
DX: Z00.00 Encounter for general adult medical examination without abnormal findings (principal); Z78.0 Asymptomatic menopausal state; F41.9 Anxiety disorder, unspecified; N18.30 Chronic kidney disease, stage 3 unspecified; J45.909 Unspecified asthma, uncomplicated
CPT/HCPCS: 99397

== ENCOUNTER 2023-02-17 09:51 | Outpatient (AMB) | payer MEDICARE, OTHER, SELFPAY ==
--- NOTE | 2023-02-17 10:08 | MHC.OFFVIS ---
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 Accompanied by: Self / Same As Patient Allergies seasonal Adverse Reaction (Severe, Uncoded 02/17/23 10:46) seasonal allergies Medication List - Last Reconciled 02/17/23 by DIMPLE Brown azelastine 2 sprays intranasal BID 30 days clonazepam 0.5 mg PO BEDTIME diphenhydramine HCl (Benadryl) 25 mg PO BEDTIME escitalopram oxalate 20 mg PO DAILY fluticasone propionate 50 mcg/actuation 2 sprays intranasal DAILY montelukast 10 mg PO DAILY pyridoxine (vitamin B6) 100 mg PO DAILY 90 days simvastatin 20 mg PO DAILY Symbicort 160-4.5 mcg/actuation (budesonide-formoterol) 2 puffs PO BID NS HPI HPI Comments History of Present Illness Details Rosa is a pleasant 72-year-old female patient of Dr. Fisher. She has a past medical history of murmur, osteopenia, allergic rhinitis, hypercholesteremia, COPD, and asthma. She presents to the office today for follow-up of her nephrolithiasis. Recent renal imaging results reviewed with the patient today. Bilateral kidneys with no calculi, lesions, and or hydronephrosis noted. Normal renl ultrasound. When asked patient reports to be doing and feeling well. She denies any bothersome urinary issues or concerns at this time. She denies urinary urgency, urinary frequency, incontinence, nocturia, hematuria, dysuria, foul smelling urine, changes to urinary stream, flank pain, fever, and or chills. She is happy with her current voiding parameters. Patient otherwise denies any other issues or concerns at this time. [facility] Medical History Murmur Normal colonoscopy Osteopenia Mammogram normal Annual physical exam Chronic allergic rhinitis Hypercholesteremia Chronic restrictive lung disease Asthma Family History Father Hypertension Mother No problems noted. Brother Mental health disorder Social History Housing: House Patient Tobacco Use Status: Never used Tobacco e-Cigarette/Vaping Use: Never Used Current occupational status: retired Cognitive needs: No Hearing needs: No Vision needs: Yes Review of Systems Eyes Reports no additional complaints ENT Reports no additional complaints Card Reports as per HPI Resp Reports as per HPI GI Reports no additional complaints Reports as per HPI Musc Reports no additional complaints Neuro Reports no additional complaints Psych Reports no additional complaints Endo Reports no additional complaints Ty/Lymph Reports no additional complaints Aller/Immun Reports no additional complaints Physical Exam Const General: cooperative, healthy appearing, comfortable, no acute distress, well developed, alert and awake Nutritional Appearance: average body habitus Orientation/consciousness: patient oriented x3 Limitations: no limitations HEENT Head: Yes normal to inspection, Yes normocephalic and Yes atraumatic Ears: hearing grossly normal bilaterally Eyes General: appearance normal, both eyes and all related structures Neck Neck: Yes normal visual inspection and Yes trachea midline Chest Chest palpation & inspection: normal inspection of the chest Resp Effort & Inspection: normal respiratory effort and able to speak in complete sentences Cardio Rate: regular rate GI Inspection: Yes normal to inspection General: Yes no CVA tenderness Back/Spine/Pelvis Back: no CVA tenderness Skin General skin exam: no rashes or lesions noted Neuro General: patient oriented x3 Extrem General: Yes normal to inspection Psych Appearance: grossly normal and well kempt Mental Status: mental status grossly normal Speech and movement: Normal speech and movement present and Clear speech present Affect: normal affect Attitude: cooperative Thought process: Normal thought process present Thought content: Normal thought content present Insight: Good insight present (Psych) Judgement: Good judgement present (Psych) Results Reviewed Results Reviewed: Date of Service: 01/30/23 EXAMINATION: US RETROPERITONEAL LIMITED (RENAL ONLY) FINDINGS: RIGHT KIDNEY: 9.8 x 4.5 x 4.4 cm (SAG x AP x TRV). The kidney is normal in size, contour, and echogenicity. Renal cortical thickness is normal. No calculi or focal parenchymal lesions. No hydronephrosis. LEFT KIDNEY: 8.9 x 4.5 x 4.2 cm (SAG x AP x TRV). The kidney is normal in size, contour, and echogenicity. Renal cortical thickness is normal. No calculi or focal parenchymal lesions. No hydronephrosis. US/US renal BI IMPRESSION: Normal renal and bladder ultrasound. Assessment & Plan Assessment & Plan (1) Nephrolithiasis: Comment: small nonobstructing kidney stone on US 02/19, recheck in 6 months Code(s): N20.0 - Calculus of kidney Plan Recent renal imaging results reviewed with the patient today; as noted above. Patient denies any bothersome urinary issues or concerns at this time. Educated, encouraged, and instructed on the importance of drinking plenty of water daily. Continue adding 1 oz of lemon juice to water daily. Renal ultrasound in 1 year. Patient reports be happy with current voiding parameters. Follow-up in 1 year with imaging to be completed prior; or sooner with any issues, concerns, and or questions. Orders: Orders US renal BI 364 Days N20.0 - Calculus of kidney Patient Instructions: The patient had an opportunity to ask questions regarding the treatment plan. All questions were answered. Physical exam, labs, and imaging were discussed and reviewed in detail. As well as risks, benefits, and discussion of treatment choices. No major barriers to understanding were identified. The patient expressed understanding and agreement with the above treatment plan. The patient was made aware they should contact our office by phone for worsening of their current condition, the appearance of new symptoms, or with any questions or concerns. Compliance is encouraged with any medications and follow up testing that is ordered. It is a privilege to be allowed the opportunity to participate in? your urological care.? Again, if you have any questions or concerns If you have any questions or concerns please do not hesitate to contact me. The office is [phone]. This note is constructed using voice recognition software. While every effort has been made to ensure accuracy automatic spinning lathe operator errors may have been included. Yours sincerely, DIMPLE Brown Coding Level of Care Code Est Pt Level 3 (92921) Diagnoses Nephrolithiasis N20.0
== END 2023-02-17 10:47 | disposition home or self-care (01) ==
PROVIDERS: Visit Provider Nurse Practitioner Family
DX: N20.0 Calculus of kidney (principal)
CPT/HCPCS: 99213

== ENCOUNTER → 2023-02-17 09:51 | Outpatient (BNVA) | payer MEDICARE, OTHER, SELFPAY | PROVIDERS: Visit Provider Nurse Practitioner Family | DX: N20.0 Calculus of kidney (principal) | CPT/HCPCS: 99212 ==

== ENCOUNTER 2023-08-10 11:05 | Outpatient (REF) | payer MEDICARE, OTHER, SELFPAY ==
[2023-08-10 13:17] LABS: MANUAL DIFF FLAG NO
[2023-08-10 13:31] LABS: Basophils Absolute Auto 0.1 X10*3/uL (0.0-0.2); Basophils Percent Auto 1.4 % (0-2); Eosinophils Absolute Auto 0.5 X10*3/uL (0.0-0.4); Eosinophils Percent Auto 9.8 % (0-4); Hematocrit 36.2 % (37.0-47.0); Hemoglobin 11.7 g/dl (12.0-16.0); Imm Gran Abs Auto 0.02 X10*3/uL (0.00-0.03); Imm Gran Pct Auto 0.4 % (0.0-0.4); Lymphocytes Absolute Auto 1.7 X10*3/uL (1.2-4.9); Lymphocytes Percent Auto 33.7 % (20-40); Mean Corpuscular HGB Conc 32.3 g/dl (31.0-35.0); Mean Corpuscular Volume 89.6 fL (80.0-98.0); Mean Platelet Volume 10.8 fL (9.4-12.3); Monocytes Absolute Auto 0.4 X10*3/uL (0.1-1.2); Monocytes Percent Auto 7.8 % (2-11); Neutrophils Absolute Auto 2.4 x10*3/uL (2.0-8.3); Neutrophils Percent Auto 46.9 % (45-73); Platelet Count 256 X10*3/uL (160-400); Red Blood Count 4.04 X10*6/uL (4.20-5.50); Red Cell Distribution Width 12.6 % (11.0-16.0)
[2023-08-10 13:56] LABS: Alanine Aminotransferase 13 U/L (0-31); Albumin Level 3.9 g/dL (3.5-5.0); Alkaline Phosphatase 66 U/L (39-117); Anion Gap 11 (12-20); Aspartate Amino Transferase 18 U/L (5-31); Bilirubin Total 0.6 mg/dL (0.0-1.0); Blood Urea Nitrogen 23 mg/dL (9-16); Calcium 9.5 mg/dL (8.4-10.2); Carbon Dioxide 26 mmol/L (22-29); Chloride 109 mmol/L (96-108); Cholesterol 185 mg/dL (<200); Estimated Glomerular Filt Rate 43; Glucose Fasting 77 mg/dL (60-99); HDL Cholesterol 70 mg/dL (>40); LDL Cholesterol Calculated 101 mg/dL (<100); Potassium 4.5 mmol/L (3.3-5.1); Sodium 141 mmol/L (135-145); Total Protein 6.8 g/dL (6.5-8.0); Triglycerides 72 mg/dL (<150)
[2023-08-10 14:12] LABS: TSH reflex Free T4 1.38 uIU/mL (0.32-4.0)
== END 2023-08-10 11:06 | disposition home or self-care (01) ==
LOC: HO.HMGCLDS 11:05
PROVIDERS: PCP Internal Medicine; Visit Provider Internal Medicine
DX: N18.30 Chronic kidney disease, stage 3 unspecified (principal); E78.00 Pure hypercholesterolemia, unspecified; J45.909 Unspecified asthma, uncomplicated; Z78.0 Asymptomatic menopausal state
CPT/HCPCS: 36415; 80053; 80061; 84443; 85025

== ENCOUNTER 2023-08-14 11:28 | Outpatient (AMB) | payer MEDICARE, OTHER, SELFPAY ==
[2023-08-14 11:35] VITALS: BP 118/76; PULSE 67; O2SAT 95; BMI 21.1
--- NOTE | 2023-08-14 11:35 | MHC.PC.OV ---
Vital Signs 08/14/23 11:35 Height 5 ft 3 in Weight 119 lb BMI 21.1 BP 118/76 Blood Pressure Location Lt brachial Position Sitting Pulse 67 Pulse Source Pulse Oximeter Pulse Oximetry (%) 95 Oxygen Delivery Method Room Air Intake Visit Reasons: 6 month follow up Intake Note: Pt is here today for 6 months follow up visit. Allergies seasonal Adverse Reaction (Severe, Uncoded 08/14/23 11:41) seasonal allergies Medication List - Last Reconciled 08/14/23 by Kristine Ribeiro MD azelastine 2 sprays intranasal BID 30 days clonazepam 1 mg PO BEDTIME diphenhydramine HCl (Benadryl) 50 mg PO BEDTIME escitalopram oxalate 20 mg PO DAILY fluticasone propion-salmeterol 250-50 mcg/dose (Wixela Inhub) 1 inh inhalation Q12H 30 days lisinopril 10 mg PO DAILY melatonin 10 mg PO BEDTIME montelukast 10 mg PO DAILY simvastatin 20 mg PO DAILY Tobacco use date assessed: 08/14/23 Fall risk assessment: 1 Fall in past year Last assessed Fall Risk: 08/14/23 Dental Screening Dental Screen Date: 08/14/23 Did you have a dental visit in the last 12 months?: Yes Did you have a dental problem in the last 6 months where you did not have access to dental care?: No Was dental information given to patient?: Patient has dentist HPI 6 month follow up HPI Details Pt presents for f/u HTN, COPD, stable. Pt c/o chronic sinus congestion and headaches. Pt uses to take Flonase but caused nasal irritation. PFSH Medical History Murmur Normal colonoscopy Osteopenia Mammogram normal Annual physical exam Chronic allergic rhinitis Hypercholesteremia Chronic restrictive lung disease Asthma Surgical History Hx of section Family History Father Hypertension Mother No problems noted. Brother Mental health disorder Social History Housing: House Patient Tobacco Use Status: Never used Tobacco e-Cigarette/Vaping Use: Never Used service: No Current occupational status: retired Cognitive needs: No Hearing needs: No Vision needs: Yes Questionnaire Thrive Questionnaire Date Thrive assessed: 11/07/22 AUDIT C Alcohol Use Questionnaire (AUDIT-C) 1. How often do you have a drink containing alcohol?: Never 3. How often do you have six or more drinks on one occasion?: Never Total Score: 0 SALENA-7 AMB Questionnaire SALENA-7 Date SALENA - 7 assessed: 11/07/22 Source: Developed by Drs. Bacilio Broderick, Sherin Ohara, Sameer Saeed and colleagues, with an educational lópez from [employer]. Review of Systems Const All systems reviewed & are unremarkable except as noted in HPI and below Eyes Reports no additional complaints ENT Reports no additional complaints Card Reports no additional complaints Resp Reports no additional complaints GI Reports no additional complaints Physical exam (Primary Care) Vital Signs: Last Vital Signs Pulse 67 08/14/23 11:35 BP 118/76 08/14/23 11:35 Pulse Ox 95 08/14/23 11:35 Oxygen Delivery Method Room Air 08/14/23 11:35 BMI result Body Mass Index 21.1 Tobacco/Smoking Status: Tobacco use Status Tobacco use date assessed 08/14/23 08/14/23 11:43 Patient Tobacco Use Status Never used Tobacco 08/14/23 11:43 e-Cigarette/Vaping Use Never Used 08/14/23 11:35 Thrive Assessment: Date of Thrive Assessment Date Thrive assessed 11/07/22 08/14/23 11:35 Const General: no acute distress Eyes General: appearance normal, both eyes and all related structures Resp Effort & Inspection: normal respiratory effort Auscultation: clear to auscultation bilaterally Cardio Rhythm: regular rhythm Heart sounds: S1 normal heart sound present and S2 normal heart sound present GI Inspection: Yes normal to inspection Assessment and Plan Assessment & Plan (1) CKD (chronic kidney disease) stage 3, GFR 30-59 ml/min: Code(s): N18.30 - Chronic kidney disease, stage 3 unspecified Plan: Monitor renal function avoid nephrotoxins (2) Chronic allergic rhinitis: Code(s): J30.9 - Allergic rhinitis, unspecified Plan: Continue nasal sprays Singulair and antihistamine (3) Hypercholesteremia: Code(s): E78.00 - Pure hypercholesterolemia, unspecified Plan: Continue statin (4) Hypertension: Code(s): I10 - Essential (primary) hypertension Plan: Continue lisinopril follow-up in 2 months Orders: Orders Comprehensive [place]. Panel Fast 2 Months N18.30 - Chronic kidney disease, stage 3 unspecified Coding Level of Care Code Est Pt Level 4 (81905) Diagnoses CKD (chronic kidney disease) stage 3, GFR 30-59 ml/min N18.30 Chronic allergic rhinitis J30.9 Hypercholesteremia E78.00 Hypertension I10
== END 2023-08-14 12:18 | disposition home or self-care (01) ==
LOC: HO.HMGC 11:28
PROVIDERS: PCP Internal Medicine; Visit Provider Internal Medicine
DX: I12.9 Hypertensive chronic kidney disease with stage 1 through stage 4 chronic kidney disease, or unspecified chronic kidney disease (principal); N18.30 Chronic kidney disease, stage 3 unspecified; J30.9 Allergic rhinitis, unspecified; E78.00 Pure hypercholesterolemia, unspecified
CPT/HCPCS: 99214

== ENCOUNTER 2023-08-22 09:55 | Outpatient (REF) | payer MEDICARE, OTHER, SELFPAY ==
--- NOTE | ~2023-08-22 | XR_ITS ---
EXAMINATION: XR CHEST CLINICAL INFORMATION: Unspecified asthma uncomplicated follow-up. Ongoing cough for months, no relief. COMPARISON: 02/28/2022. TECHNIQUE: 2 views of the chest were obtained. FINDINGS: The lungs are well-inflated. There is no gross pneumothorax. Heart size is normal. No new focal consolidation to suggest pneumonia. Degenerative changes in the thoracic spine. Redemonstration of mild loss of height of a lower thoracic vertebral body. XR/XR chest 2V IMPRESSION: No evidence of pneumonia.
== END 2023-08-22 09:56 | disposition home or self-care (01) ==
LOC: HO.XRAY 09:55
PROVIDERS: PCP Internal Medicine; Visit Provider Hospitalist
DX: J45.40 Moderate persistent asthma, uncomplicated (principal); J98.4 Other disorders of lung; J30.9 Allergic rhinitis, unspecified; R05.8 Other specified cough; T46.4X5A Adverse effect of angiotensin-converting-enzyme inhibitors, initial encounter
CPT/HCPCS: 71046; 99212

== ENCOUNTER 2023-08-22 10:32 | Outpatient (AMB) | payer MEDICARE, OTHER, SELFPAY ==
[2023-08-22 10:55] VITALS: BP 132/70; PULSE 61; O2SAT 96; BMI 20.3
--- NOTE | 2023-08-22 10:55 | A.OFFVIS_ITS ---
Vital Signs 08/22/23 10:55 Height 5 ft 4 in Weight 118 lb BMI 20.3 BP 132/70 Blood Pressure Location Lt brachial Position Sitting Pulse 61 Pulse Source Pulse Oximeter Pulse Oximetry (%) 96 Oxygen Delivery Method Room Air Intake Visit Reasons: asthma: 1 year f/u Sports Doctor Required: No Allergies seasonal Adverse Reaction (Severe, Uncoded 08/22/23 10:57) seasonal allergies HPI Comments Details: The patient is a 73-year-old woman with a known history of allergic rhinitis. As a child she had significant allergies and did receive allergy shots. After she became for the 1st child see stab getting allergy shots. She had been in usual state health until more recently in the last few years she has been getting frequent respiratory illnesses. She has required medications for these conditions. She has been concerned because it been happening more often more frequent. She did follow-up with her primary care doctor and had pulmonary function studies that demonstrated a reversible obstruction consistent with asthma. She also has some restriction. Based on her abnormal pulmonary function studies the patient was referred to Pulmonary. Based on the pulmonary function study she also has some restriction. On further questioning she had a fall back in 2011 which he fractured ribs. She has not had any real recent imaging studies however. She denies any eczema. She has been having some nasal congestion. She does not use the nasal steroid spray because it causes it epistaxis. Her wheezi ng and shortness of breaths significant improved on the current respiratory regimen. She did have blood work which we reviewed demonstrating some degree of eosinophilia on allergies. I did give her copies of the allergies. She is doing the nasal rinsing in this is effective for her. She did have a a chest x-ray which we personally reviewed. There appears to be some airspace disease and mucus plugging mainly in the right middle lobe area. Is very limited because of the x-ray. But the patient does feel better now hopeful that based on the fact that she is starting to feel better that finding on the right middle lobe area will also improved. Therefore, will have her get an x-ray in a couple months. If however the patient feels worse with increasing respiratory symptoms will repeat x-ray sooner. If the areas to persistently abnormal she will need a CT scan of the chest. 08/25/2022 the patient is here for a pulmonary follow-up visit. Overall the patient is doing relatively well. She still continues to complain about her nasal congestion. She has been using the fluticasone and also doing the Neti rinsing. The patient also has been using Sudafed. She also has Symbicort. She does not use it every day and she is doing well from a respiratory status. We did review her last chest x-ray from January 2022 demonstrating no acute disease. Her exam is also relatively normal. She does have inflammation of the nasal turbinates. The patient will benefit from additional nasal therapy. Otherwise patient is without any other complaints. 08/22/2023 the patient is here for a pulmonary follow-up visit. Overall she is doing okay. She is using the Wixela now because the Symbicort is no longer available for her. She also has a rescue inhaler although is and she needs a new 1. She still uses her inhaler but typically less than twice a week. She is noticed worsening cough lately though. The cough is nonproductive in nature and hacky. Moderate severity. She is wondering if the rescue inhaler will be effective in helping symptoms. Although the same time she was noted to have issues with a high blood pressure and also renal insufficiency and she was placed on lisinopril. Explained to her that this likely is related cough. I did reach out to her primary care to see if we can switch her off the SAMSON inhibitor and placed on her ARB. In the meantime the patient will be provided a rescue inhaler that she can use as needed. We did look at her last chest x-ray that she had today. The x-ray has not been officially read but did personally reviewed without any acute disease. If there is anything else that was identified on the x-ray I will let her know. Otherwise patient is doing well from a respiratory status will follow-up in a year's time with pulmonary function studies. If she has any worsening symptoms prior to that visit she will call for an earlier assessment. [facility] Medical History (Updated 08/22/23 @ 16:36 by Matteo Prieto MD) Cough due to SAMSON inhibitor Murmur Normal colonoscopy Osteopenia Mammogram normal Annual physical exam Chronic allergic rhinitis Hypercholesteremia Chronic restrictive lung disease Asthma Surgical History Hx of section Family History Father Hypertension Mother No problems noted. Brother Mental health disorder Social History Housing: House Patient Tobacco Use Status: Never used Tobacco e-Cigarette/Vaping Use: Never Used service: No Current occupational status: retired Cognitive needs: No Hearing needs: No Vision needs: Yes Review of Systems Const Denies night sweats ENT Denies change in voice, Reports otalgia, Denies lip swelling, Denies mouth pain, Reports nasal congestion, Reports nasal discharge and Denies tongue swelling Card Denies chest pain and Denies dyspnea on exertion Resp Reports cough and Denies dyspnea on exertion GI Denies abdominal pain Musc Denies no additional complaints Neuro Denies Neuro-related abnormal movements Psych Denies no additional complaints Ty/Lymph Denies easy bleeding and Denies lymphadenopathy Aller/Immun Denies lip swelling and Denies tongue swelling Physical Exam Vital Signs: Last Vital Signs Pulse 61 08/22/23 10:55 BP 132/70 08/22/23 10:55 Pulse Ox 96 08/22/23 10:55 Oxygen Delivery Method Room Air 08/22/23 10:55 BMI result Body Mass Index 20.3 Const General: cooperative, healthy appearing, comfortable, no acute distress, well developed, alert and awake Nutritional Appearance: average body habitus Orientation/consciousness: patient oriented x3 Limitations: no limitations HEENT Head: Yes normal to inspection, Yes normocephalic and Yes atraumatic Ears: hearing grossly normal bilaterally Eyes General: appearance normal, both eyes and all related structures Neck Neck: Yes normal visual inspection and Yes trachea midline Chest Chest palpation & inspection: normal inspection of the chest Resp Effort & Inspection: normal respiratory effort and able to speak in complete sentences Auscultation: diminished lung sounds Cardio Rate: regular rate GI Inspection: Yes normal to inspection General: Yes no CVA tenderness Back/Spine/Pelvis Back: no CVA tenderness Skin General skin exam: no rashes or lesions noted Neuro General: patient oriented x3 Extrem General: Yes normal to inspection Psych Appearance: grossly normal and well kempt Mental Status: mental status grossly normal Speech and movement: Normal speech and movement present and Clear speech present Affect: normal affect Attitude: cooperative Thought process: Normal thought process present Thought content: Normal thought content present Insight: Good insight present (Psych) Judgement: Good judgement present (Psych) Assessment & Plan Assessment & Plan (1) Asthma: Code(s): J45.909 - Unspecified asthma, uncomplicated Category: Medical Qualifiers: Asthma complication type: uncomplicated Asthma persistence: persistent Asthma severity: moderate Qualified Code(s): J45.40 - Moderate persistent asthma, uncomplicated Plan: continue Symbicort Start using a spacer (provided) (2) Chronic restrictive lung disease: Code(s): J98.4 - Other disorders of lung Category: Medical Plan: Will repeat PFTs during her next visit (3) Chronic allergic rhinitis: Code(s): J30.9 - Allergic rhinitis, unspecified Category: Medical Plan: Allergy medicine (4) Cough due to SAMSON inhibitor: Code(s): R05.8 - Other specified cough; T46.4X5A - Adverse effect of dctrmlhkmtl-epfaeatnli-nmplwt inhibitors, initial encounter Category: Medical Plan Continue Wixela continue Fluticasone asteline nasal spray Nasal sinus rinse with distilled water Continue singular change SAMSON to ARB PFTs Follow-up 10-12 months Orders: Orders XR chest 2V Today J45.909 - Unspecified asthma, uncomplicated PFT pulmonary function test 364 Days J98.4 - Other disorders of lung Medications: New albuterol sulfate 90 mcg/actuation 2 inhalations inhalation Q6H PRN 18 grams 12RF shortness of breath or wheezing 30 days J44.9 - Chronic obstructive p ulmonary disease, unspecified Discontinued lisinopril Discontinued Reason: Doctor's Order 10 mg PO DAILY 90 tabs 1RF Coding Level of Care Code Est Pt Level 4 (10032) Diagnoses Moderate persistent asthma without complication J45.40 Asthma complication type: uncomplicated Asthma persistence: persistent Asthma severity: moderate Chronic restrictive lung disease J98.4 Chronic allergic rhinitis J30.9 Cough due to SAMSON inhibitor R05.8; T46.4X5A Time Spent (min) 16
== END 2023-08-22 11:30 | disposition home or self-care (01) ==
PROVIDERS: PCP Internal Medicine; Visit Provider Hospitalist
DX: J45.40 Moderate persistent asthma, uncomplicated (principal); J98.4 Other disorders of lung; J30.9 Allergic rhinitis, unspecified; R05.8 Other specified cough; T46.4X5A Adverse effect of angiotensin-converting-enzyme inhibitors, initial encounter
CPT/HCPCS: 99214

== ENCOUNTER 2023-10-10 10:18 | Outpatient (REF) | payer MEDICARE, OTHER, SELFPAY ==
--- NOTE | ~2023-10-10 | MM_ITS ---
EXAMINATION: BONE DENSITOMETRY CLINICAL INDICATION: Menopause. COMPARISON: Previous BD dated 03/19/2019 and baseline BD dated 11/16/2006. TECHNIQUE: Using a [employer] DXA System (software version: 13.1) manufactured by [employer], dual-energy x-ray absorptiometry was performed of the lumbar spine and left hip. The images are of good technical quality. Summary results are attached. FINDINGS: LEFT FEMUR, NECK: Current: BMD 0.852 g/cm2, Z-score 0.7, T-score -1.3, osteopenia. Prior: BMD 0.928 g/cm2. Baseline: BMD 0.994 g/cm2. LEFT FEMUR, TOTAL: Current: BMD 0.892 g/cm2, Z-score 0.9, T-score -0.9, normal, 3.5% decrease from previous, 17.0% decrease from baseline (<5% change is not significant). Prior: BMD 0.924 g/cm2. Baseline: BMD 1.075 g/cm2. AP SPINE L1-L4: Current: BMD 0.830 g/cm2, Z-score -0.8, T-score -2.9, osteoporosis, 11.7% decrease from previous, 20.8% decrease from baseline (<5% change is not significant). Prior: BMD 0.940 g/cm2. Baseline: BMD 1.048 g/cm2. IDENTIFIED RISK FACTORS: Menopause, height loss, history of fracture (adult). HISTORY OF FRACTURE: Other. MEDICATIONS: Multivitamin, vitamin D. MM/XR DEXA axial skeleton IMPRESSION: 1. DIAGNOSIS: Osteoporosis based on the lowest T-score value of -2.9 in the lumbar spine applying World Health Organization criteria. 2. 10-YEAR FRACTURE RISK PREDICTION, FRAX: According to the guidelines, FRAX calculation should only be performed on patients in the osteopenia bone density category. Therefore, FRAX was not performed on this patient. 3. Treatment Recommendations: NOF guidelines recommend consideration for treatment in postmenopausal women and men age 50 and older presenting with the following: -A hip or vertebral (clinical or morphometric) fracture. -T-score less than or equal to -2.5 at the femoral neck or spine after appropriate evaluation to exclude secondary causes. -Low bone mass at the hip or spine and a 10-year fracture probability by FRAX of greater than or equal to 3% for hip fracture or greater than or equal to 20% for major osteoporotic fracture based on the [place] adapted WHO algorithm. 4. Other Recommendations: All treatment decisions require clinical judgment and consideration of individual patient factors, including patient preferences, comorbidities, previous drug use, risk factors not captured in the FRAX model (e.g. frailty, falls, vitamin D deficiency, increased bone turnover, interval significant decline in bone density) and possible under or overestimation of fracture risk by FRAX. Additional medical evaluation for secondary cause of low bone mineral density may be appropriate. FUTURE SCAN RECOMMENDATION: People with diagnosed cases of osteoporosis or at high risk for fracture should have regular bone mineral density tests. For patients eligible for Medicare, routine testing is allowed once every 2 years. The testing frequency can be increased to one year for patients who have rapidly progressing disease, those who are receiving or discontinuing medical therapy to restore bone mass, or have additional risk factors.
== END 2023-10-10 10:19 | disposition home or self-care (01) ==
LOC: HO.MAMMO 10:18
PROVIDERS: PCP Internal Medicine; Visit Provider Internal Medicine
DX: Z12.31 Encounter for screening mammogram for malignant neoplasm of breast (principal); Z13.820 Encounter for screening for osteoporosis; Z78.0 Asymptomatic menopausal state
CPT/HCPCS: 77063; 77067; 77080

== ENCOUNTER → 2023-10-10 10:19 | Outpatient (BNV) | payer MEDICARE, OTHER, SELFPAY | PROVIDERS: PCP Internal Medicine; Visit Provider Radiology Diagnostic Radiology | DX: Z12.31 Encounter for screening mammogram for malignant neoplasm of breast (principal) | CPT/HCPCS: 77063; 77067 ==

== ENCOUNTER 2023-11-22 11:24 | Outpatient (AMB) | payer MEDICARE, OTHER, SELFPAY ==
--- NOTE | 2023-11-22 11:34 | MHC.PC.OV ---
Vital Signs 11/22/23 11:35 Height 5 ft 4 in Weight 117 lb BMI 20.1 BP 126/80 Blood Pressure Location Lt brachial Position Sitting Pulse 63 Pulse Source Pulse Oximeter Pulse Oximetry (%) 98 Oxygen Delivery Method Room Air Intake Visit Reasons: 2M F/U BP Intake Note: Savannah is here today for 2 months follow up visit. Allergies lisinopril Adverse Reaction (Intermediate, Verified 11/22/23 11:49) Cough seasonal Adverse Reaction (Severe, Uncoded 11/22/23 11:36) seasonal allergies Medication List - Last Reconciled 11/22/23 by Kristine Ribeiro MD albuterol sulfate 90 mcg/actuation 2 inhalations inhalation Q6H PRN 30 days alendronate (Fosamax) 70 mg PO QWEEK azelastine 2 sprays intranasal BID 30 days clonazepam 1 mg PO BEDTIME diphenhydramine HCl (Benadryl) 50 mg PO BEDTIME escitalopram oxalate 20 mg PO DAILY fluticasone propion-salmeterol 250-50 mcg/dose (Wixela Inhub) 1 inh inhalation Q12H 30 days melatonin 10 mg PO BEDTIME montelukast 10 mg PO DAILY olmesartan 20 mg PO DAILY simvastatin 20 mg PO DAILY Tobacco use date assessed: 11/22/23 Dental Screening Dental Screen Date: 08/14/23 HPI 2M F/U BP HPI Details Pt presents for HTN, stable on Olmesartan. Asthma is controlled on Wixela. Patient's cough resolved after she stopped taking lisinopril. Chronic anxiety is stable on escitalopram and she has been tapering down clonazepam. Patient has been under stress related to the custody of her grandchildren because her son is in assisted. [facility] Medical History (Updated 11/22/23 @ 12:36 by Kristine Ribeiro MD) Osteoporosis Cough due to SAMSON inhibitor Murmur Normal colonoscopy Mammogram normal Annual physical exam Chronic allergic rhinitis Hypercholesteremia Chronic restrictive lung disease Asthma Surgical History Hx of section Family History Father Hypertension Mother No problems noted. Brother Mental health disorder Social History Housing: House Patient Tobacco Use Status: Never used Tobacco e-Cigarette/Vaping Use: Never Used service: No Current occupational status: retired Cognitive needs: No Hearing needs: No Vision needs: Yes Questionnaire PHQ-9 Over the last 2 weeks, how often have you been bothered by any of the following problems? 1. Little interest or pleasure in doing things: not at all 2. Feeling down, depressed, or hopeless: not at all 3. Trouble falling or staying asleep, or sleeping too much: not at all 4. Feeling tired or having little energy: several days 5. Poor appetite or overeating: not at all 6. Feeling bad about yourself - or that you are a failure or have let yourself or your family down: not at all 7. Trouble concentrating on things, such as reading the newspaper or watching television: not at all 8. Moving or speaking so slowly that other people could have noticed. Or the opposite - being so fidgety or restless that you have been moving around a lot more than usual: not at all 9. Thoughts that you would be better off or of hurting yourself in some way: not at all Total score: 1 Depression Screening Interpretation: Negative Depression Screening Done: Yes Source: Developed by Drs. Bacilio Broderick, Sherin Ohara, Sameer Saeed and colleagues, with an educational lópez from [employer]. Thrive Questionnaire Date Thrive assessed: 11/22/23 I am a: Patient What is your living situation today?: I have a steady place to live Within the past 12 months, did the food you bought not last and you didn't have the money to get more?: Never true Within the past 12 months, did you worry whether your food would run out before you got money to buy more?: Never true Do you have trouble paying for medicines?: No Do you have trouble getting transportation to medical appointments?: No Do you have trouble paying your heating and electricity bill?: No Do you have trouble taking care of your child, family member or friend?: No Do you have trouble with day-to-day activities such as bathing, preparing meals, shopping, managing finances, etc.?: No Are you currently unemployed and looking for a job?: No Are you interested in more education?: No Please select the resources that you would like help with: Housing/Jail Currently or been in a relationship where the following occur: No concerns reported THRIVE Score: 0 AUDIT C Alcohol Use Questionnaire (AUDIT-C) 1. How often do you have a drink containing alcohol?: Never 3. How often do you have six or more drinks on one occasion?: Never Total Score: 0 SALENA-7 AMB Questionnaire SALENA-7 Date SALENA - 7 assessed: 11/22/23 Feeling nervous, anxious, or on edge: 1 = Several days Not being able to stop or control worryin = Several days Worrying too much about different things: 0 = Not at all Trouble relaxin = Not at all Being so restless that it is hard to sit still: 0 = Not at all Becoming easily annoyed or irritable: 0 = Not at all Feeling afraid as if something awful might happen: 0 = Not at all Total SALENA-7 score (0-4 normal; 5-9 mild; 10-14 moderate; 15-21 severe): 2 Source: Developed by Drs. Bacilio Broderick, Sherin Ohara, Sameer Saeed and colleagues, with an educational lópez from [employer]. Review of Systems Const All systems reviewed & are unremarkable except as noted in HPI and below ENT Reports no additional complaints Card Reports no additional complaints Resp Reports no additional complaints GI Reports no additional complaints Reports no additional complaints Physical exam (Primary Care) Vital Signs: Last Vital Signs Pulse 63 11/22/23 11:35 BP 126/80 11/22/23 11:35 Pulse Ox 98 11/22/23 11:35 Oxygen Delivery Method Room Air 11/22/23 11:35 BMI result Body Mass Index 20.1 Tobacco/Smoking Status: Tobacco use Status Tobacco use date assessed 11/22/23 11/22/23 11:40 Patient Tobacco Use Status Never used Tobacco 11/22/23 11:40 e-Cigarette/Vaping Use Never Used 11/22/23 11:40 PHQ-9: PHQ-9 Score PHQ-9: Total score 1 11/22/23 11:40 Depression Screening Interpretation: Negative Thrive Assessment: Date of Thrive Assessment Date Thrive assessed 11/22/23 11/22/23 11:40 Currently or been in a relationship where the following occur: No concerns reported Const General: no acute distress [facility] General nose exam: Normal external nose present Neck Neck: Yes supple Resp Effort & Inspection: normal respiratory effort Auscultation: clear to auscultation bilaterally Cardio Rhythm: regular rhythm Heart sounds: S1 normal heart sound present and S2 normal heart sound present GI Inspection: Yes normal to inspection Palpation (GI): Soft to palpation Assessment and Plan Assessment & Plan (1) Hypercholesteremia: Code(s): E78.00 - Pure hypercholesterolemia, unspecified Plan: Continue statin (2) CKD (chronic kidney disease) stage 3, GFR 30-59 ml/min: Code(s): N18.30 - Chronic kidney disease, stage 3 unspecified Plan: Monitor renal function patient will return for blood work tomorrow. (3) Anemia: Code(s): D64.9 - Anemia, unspecified Plan: Check CBC and iron studies (4) Anxiety: Comment: f/u with psychiatry Code(s): F41.9 - Anxiety disorder, unspecified Plan: Continue escitalopram (5) Hypertension: Code(s): I10 - Essential (primary) hypertension Plan: Continue olmesartan, check comprehensive panel (6) Osteoporosis: Comment: T-score 2.9 L spine, DEXA ,Started on Fosamax 09/2023, Code(s): M81.0 - Age-related osteoporosis without current pathological fracture Orders: Orders Comprehensive [place]. Panel Fast Today E78.00 - Pure hypercholesterolemia, unspecified, N18.30 - Chronic kidney disease, stage 3 unspecified Complete Blood Count Auto Diff Today E78.00 - Pure hypercholesterolemia, unspecified, N18.30 - Chronic kidney disease, stage 3 unspecified IRON PROFILE Today E78.00 - Pure hypercholesterolemia, unspecified, N18.30 - Chronic kidney disease, stage 3 unspecified Vitamin D 25-OH Total Today M81.0 - Age-related osteoporosis without current pathological fracture TSH reflex Free T4 Today E78.00 - Pure hypercholesterolemia, unspecified, N18.30 - Chronic kidney disease, stage 3 unspecified Medications: Refilled olmesartan 20 mg PO DAILY 90 tabs 3RF Coding Level of Care Code Est Pt Level 4 (13629) Diagnoses Hypercholesteremia E78.00 CKD (chronic kidney disease) stage 3, GFR 30-59 ml/min N18.30 Anemia D64.9 Anxiety F41.9 Hypertension I10 Osteoporosis M81.0
[2023-11-22 11:35] VITALS: BP 126/80; PULSE 63; O2SAT 98; BMI 20.1
== END 2023-11-22 12:09 | disposition home or self-care (01) ==
PROVIDERS: PCP Internal Medicine; Visit Provider Internal Medicine
DX: I12.9 Hypertensive chronic kidney disease with stage 1 through stage 4 chronic kidney disease, or unspecified chronic kidney disease (principal); E78.00 Pure hypercholesterolemia, unspecified; N18.30 Chronic kidney disease, stage 3 unspecified; D64.9 Anemia, unspecified; F41.9 Anxiety disorder, unspecified; M81.0 Age-related osteoporosis without current pathological fracture
CPT/HCPCS: 99214

== ENCOUNTER 2023-11-29 16:05 | Outpatient (REF) | payer MEDICARE, OTHER, SELFPAY ==
[2023-11-29 16:16] LABS: MANUAL DIFF FLAG NO
[2023-11-29 17:07] LABS: Basophils Absolute Auto 0.1 X10*3/uL (0.0-0.2); Basophils Percent Auto 1.1 % (0-2); Eosinophils Absolute Auto 0.4 X10*3/uL (0.0-0.4); Eosinophils Percent Auto 5.7 % (0-4); Hematocrit 34.6 % (37.0-47.0); Hemoglobin 11.4 g/dl (12.0-16.0); Imm Gran Abs Auto 0.02 X10*3/uL (0.00-0.03); Imm Gran Pct Auto 0.3 % (0.0-0.4); Lymphocytes Absolute Auto 1.8 X10*3/uL (1.2-4.9); Lymphocytes Percent Auto 27.6 % (20-40); Mean Corpuscular HGB Conc 32.9 g/dl (31.0-35.0); Mean Corpuscular Hemoglobin 28.9 pg (27.0-33.0); Mean Corpuscular Volume 87.6 fL (80.0-98.0); Mean Platelet Volume 10.5 fL (9.4-12.3); Monocytes Absolute Auto 0.5 X10*3/uL (0.1-1.2); Monocytes Percent Auto 8.2 % (2-11); Neutrophils Absolute Auto 3.7 x10*3/uL (2.0-8.3); Neutrophils Percent Auto 57.1 % (45-73); Platelet Count 272 X10*3/uL (160-400); Red Blood Count 3.95 X10*6/uL (4.20-5.50); Red Cell Distribution Width 12.6 % (11.0-16.0); White Blood Count 6.4 X10*3/uL (4.8-10.8)
[2023-11-29 17:39] LABS: Alanine Aminotransferase 15 U/L (0-31); Albumin Level 4.1 g/dL (3.5-5.0); Alkaline Phosphatase 65 U/L (39-117); Anion Gap 10 (12-20); Aspartate Amino Transferase 20 U/L (5-31); Bilirubin Total 0.4 mg/dL (0.0-1.0); Blood Urea Nitrogen 18 mg/dL (9-16); Calcium 9.7 mg/dL (8.4-10.2); Carbon Dioxide 26 mmol/L (22-29); Chloride 100 mmol/L (96-108); Estimated Glomerular Filt Rate 45; Glucose Fasting 77 mg/dL (60-99); Iron 67 mcg/dL (30-160); Percent Iron Saturation 23 % (15-50); Potassium 4.8 mmol/L (3.3-5.1); Sodium 131 mmol/L (135-145); Total Iron Binding Capacity 294 mcg/dL (228-428); Total Protein 6.8 g/dL (6.5-8.0); Unsaturated Iron Binding 227 ug/dL
[2023-11-29 17:56] LABS: TSH reflex Free T4 2.06 uIU/mL (0.32-4.0); Vitamin D 25-OH Total 71.4 ng/mL (>30)
== END 2023-11-29 16:06 | disposition home or self-care (01) ==
LOC: HO.LAB 16:05
PROVIDERS: PCP Internal Medicine; Visit Provider Internal Medicine
DX: N18.30 Chronic kidney disease, stage 3 unspecified (principal); E78.00 Pure hypercholesterolemia, unspecified; M81.0 Age-related osteoporosis without current pathological fracture
CPT/HCPCS: 36415; 80053; 82306; 83540; 84443; 85025

== ENCOUNTER 2023-12-26 10:35 | Outpatient (REF) | payer MEDICARE, OTHER, SELFPAY ==
[2023-12-26 12:07] LABS: Anion Gap 10 (12-20); Blood Urea Nitrogen 15 mg/dL (9-16); Calcium 9.1 mg/dL (8.4-10.2); Carbon Dioxide 25 mmol/L (22-29); Chloride 92 mmol/L (96-108); Estimated Glomerular Filt Rate 57; Glucose Random 78 mg/dL (60-115); Potassium 4.9 mmol/L (3.3-5.1); Sodium 122 mmol/L (135-145)
== END 2023-12-26 10:36 | disposition home or self-care (01) ==
LOC: HO.LAB 10:35
PROVIDERS: PCP Internal Medicine; Visit Provider Internal Medicine
DX: E87.1 Hypo-osmolality and hyponatremia (principal)
CPT/HCPCS: 36415; 80048

== ENCOUNTER 2023-12-28 15:28 | Outpatient (REF) | payer MEDICARE, OTHER, SELFPAY ==
[2023-12-28 17:58] LABS: Anion Gap 9 (12-20); Blood Urea Nitrogen 20 mg/dL (9-16); Carbon Dioxide 25 mmol/L (22-29); Chloride 97 mmol/L (96-108); Estimated Glomerular Filt Rate 43; Glucose Random 160 mg/dL (60-115); Potassium 4.2 mmol/L (3.3-5.1); Sodium 127 mmol/L (135-145)
== END 2023-12-28 15:29 | disposition home or self-care (01) ==
LOC: HO.LAB 15:28
PROVIDERS: PCP Internal Medicine; Visit Provider Internal Medicine
DX: E87.1 Hypo-osmolality and hyponatremia (principal)
CPT/HCPCS: 36415; 80048

== ENCOUNTER 2024-01-05 14:23 | Outpatient (REF) | payer MEDICARE, OTHER, SELFPAY ==
[2024-01-05 15:29] LABS: Anion Gap 10 (12-20); Blood Urea Nitrogen 23 mg/dL (9-16); Calcium 9.8 mg/dL (8.4-10.2); Carbon Dioxide 28 mmol/L (22-29); Chloride 99 mmol/L (96-108); Estimated Glomerular Filt Rate 42; Glucose Random 95 mg/dL (60-115); Potassium 4.5 mmol/L (3.3-5.1); Sodium 132 mmol/L (135-145)
== END 2024-01-05 14:24 | disposition home or self-care (01) ==
LOC: HO.LAB 14:23
PROVIDERS: PCP Internal Medicine; Visit Provider Internal Medicine
DX: E87.1 Hypo-osmolality and hyponatremia (principal)
CPT/HCPCS: 36415; 80048

== ENCOUNTER 2024-02-06 12:28 | Outpatient (REF) | payer MEDICARE, OTHER, SELFPAY ==
--- NOTE | ~2024-02-06 | US_ITS ---
EXAMINATION: US RETROPERITONEAL LIMITED (RENAL ONLY) CLINICAL INFORMATION: Calculus of kidney. COMPARISON: Renal ultrasound 01/30/2023 and 09/15/2022. TECHNIQUE: Real-time imaging of the kidneys. FINDINGS: RIGHT KIDNEY: 10.1 x 4.1 x 5.3 cm (SAG x AP x TRV). The kidney is normal in size, contour, and echogenicity. Renal cortical thickness is normal. No calculi or focal parenchymal lesions. No hydronephrosis. LEFT KIDNEY: 9.6 x 4.4 x 4.2 cm (SAG x AP x TRV). The kidney is normal in size, contour, and echogenicity. Renal cortical thickness is normal. No calculi or focal parenchymal lesions. No hydronephrosis. US/US renal BI IMPRESSION: Normal renal ultrasound. No stones found. Electronically signed by: Nancy Lechuga MD 03/17/2024 07:46 PM EST
== END 2024-02-06 12:29 | disposition home or self-care (01) ==
LOC: HO.US 12:28
PROVIDERS: PCP Internal Medicine; Visit Provider Nurse Practitioner Family
DX: N20.0 Calculus of kidney (principal)
CPT/HCPCS: 76775

== ENCOUNTER 2024-02-19 12:45 | Outpatient (REF) | payer MEDICARE, OTHER, SELFPAY ==
[2024-02-19 14:53] LABS: Anion Gap 11 (12-20); Blood Urea Nitrogen 20 mg/dL (9-16); Calcium 9.1 mg/dL (8.4-10.2); Carbon Dioxide 24 mmol/L (22-29); Chloride 100 mmol/L (96-108); Estimated Glomerular Filt Rate 49; Glucose Random 75 mg/dL (60-115); Potassium 4.1 mmol/L (3.3-5.1); Sodium 131 mmol/L (135-145)
== END 2024-02-19 12:46 | disposition home or self-care (01) ==
LOC: HO.LAB 12:45
PROVIDERS: PCP Internal Medicine; Visit Provider Internal Medicine
DX: E87.1 Hypo-osmolality and hyponatremia (principal)
CPT/HCPCS: 36415; 80048

== ENCOUNTER 2024-02-22 13:04 | Outpatient (AMB) | payer MEDICARE, OTHER, SELFPAY ==
--- NOTE | 2024-02-22 13:10 | A.OFFPC_ITS ---
Vital Signs 02/22/24 13:12 Height 5 ft 4 in Weight 117 lb BMI 20.1 BP 124/70 Blood Pressure Location Rt brachial Position Sitting Pulse 84 Pulse Source Pulse Oximeter Pulse Oximetry (%) 98 Oxygen Delivery Method Room Air Intake Visit Reasons: Annual PE Intake Note: Pt is here today for PE. Pt had blood work done on 02/18. Allergies lisinopril Adverse Reaction (Intermediate, Verified 02/22/24 13:16) Cough seasonal Adverse Reaction (Severe, Uncoded 02/22/24 13:16) seasonal allergies Medication List - Last Reconciled 02/22/24 by Kristine Ribeiro MD albuterol sulfate 90 mcg/actuation 2 inhalations inhalation Q6H PRN 30 days alendronate (Fosamax) 70 mg PO QWEEK azelastine 2 sprays intranasal BID 30 days clonazepam 1 mg PO BEDTIME diphenhydramine HCl (Benadryl) 50 mg PO BEDTIME escitalopram oxalate 20 mg PO DAILY fluticasone propion-salmeterol 250-50 mcg/dose (Wixela Inhub) 1 inh inhalation Q12H 30 days melatonin 10 mg PO BEDTIME montelukast 10 mg PO DAILY olmesartan 20 mg PO DAILY simvastatin 20 mg PO DAILY Tobacco use date assessed: 02/22/24 Dental Screening Dental Screen Date: 08/14/23 HPI Annual PE HPI Details Pt presents for PE. PENDING SALE TO [facility] Medical History (Updated 02/22/24 @ 14:25 by Kristine Ribeiro MD) Osteoporosis Cough due to SAMSON inhibitor Murmur Normal colonoscopy Mammogram normal Annual physical exam Chronic allergic rhinitis Hypercholesteremia Chronic restrictive lung disease Asthma Surgical History Hx of section Family History Father Hypertension Mother No problems noted. Brother Mental health disorder Social History Housing: House Patient Tobacco Use Status: Never used Tobacco e-Cigarette/Vaping Use: Never Used service: No Current occupational status: retired Cognitive needs: No Hearing needs: No Vision needs: Yes Questionnaire Thrive Questionnaire Date Thrive assessed: 11/22/23 I am a: Patient What is your living situation today?: I have a steady place to live Within the past 12 months, did the food you bought not last and you didn't have the money to get more?: Never true Within the past 12 months, did you worry whether your food would run out before you got money to buy more?: Never true Do you have trouble paying for medicines?: No Do you have trouble getting transportation to medical appointments?: No Do you have trouble paying your heating and electricity bill?: No Do you have trouble taking care of your child, family member or friend?: No Do you have trouble with day-to-day activities such as bathing, preparing meals, shopping, managing finances, etc.?: No Are you currently unemployed and looking for a job?: No Are you interested in more education?: No Please select the resources that you would like help with: None Currently or been in a relationship where the following occur: No concerns reported THRIVE Score: 0 SALENA-7 AMB Questionnaire SALENA-7 Date SALENA - 7 assessed: 11/22/23 Source: Developed by Drs. Bacilio Broderick, Sherin Ohara, Sameer Saeed and colleagues, with an educational lópez from [employer]. Review of Systems Const All systems reviewed & are unremarkable except as noted in HPI and below Eyes Reports no additional complaints ENT Reports no additional complaints Card Reports no additional complaints Resp Reports no additional complaints GI Reports no additional complaints Reports no additional complaints Physical exam (Primary Care) Vital Signs: Last Vital Signs Pulse 84 02/22/24 13:12 BP 124/70 02/22/24 13:12 Pulse Ox 98 02/22/24 13:12 Oxygen Delivery Method Room Air 02/22/24 13:12 BMI result Body Mass Index 20.1 Tobacco/Smoking Status: Tobacco use Status Tobacco use date assessed 02/22/24 02/22/24 13:18 Patient Tobacco Use Status Never used Tobacco 02/22/24 13:12 e-Cigarette/Vaping Use Never Used 02/22/24 13:12 Thrive Assessment: Date of Thrive Assessment Date Thrive assessed 11/22/23 02/22/24 13:12 Currently or been in a relationship where the following occur: No concerns reported Const General: no acute distress HENMT Ears: TM's normal bilaterally Face and sinus: Yes normal facial exam Eyes General: appearance normal, both eyes and all related structures Neck Neck: Yes no lymphadenopathy and Yes supple Resp Effort & Inspection: normal respiratory effort Auscultation: clear to auscultation bilaterally Cardio Rhythm: regular rhythm Heart sounds: S1 normal heart sound present and S2 normal heart sound present GI Inspection: Yes normal to inspection Palpation (GI): Soft to palpation Percussion: Yes normal to percussion Auscultation: normal bowel sounds Coding Level of Care Code Est Pt Prev Care >65y(02668) Diagnoses Hearing loss H91.90 CKD (chronic kidney disease) stage 3, GFR 30-59 ml/min N18.30 Osteoporosis M81.0 Annual physical exam Z00.00 Hypercholesteremia E78.00 Moderate persistent asthma without complication J45.40 Asthma severity: moderate Asthma persistence: persistent Asthma complication type: uncomplicated Anemia D64.9 Assessment & Plan Assessment & Plan (1) Hearing loss: Code(s): H91.90 - Unspecified hearing loss, unspecified ear Category: Medical Plan: Refer for hearing test (2) CKD (chronic kidney disease) stage 3, GFR 30-59 ml/min: Code(s): N18.30 - Chronic kidney disease, stage 3 unspecified Category: Medical Plan: Avoid nephrotoxins monitor renal function (3) Osteoporosis: Comment: T-score 2.9 L spine, DEXA ,Started on Fosamax 09/2023, Code(s): M81.0 - Age-related osteoporosis without current pathological fracture Category: Medical Plan: Continue Fosamax and vitamin-D (4) Annual physical exam: Code(s): Z00.00 - Encounter for general adult medical examination without abnormal findings Category: Medical Plan: Well-balanced diet regular physical activity discussed with the patient she is up-to-date with the mammogram and had negative Cologuard, follow-up in 6 months (5) Hypercholesteremia: Code(s): E78.00 - Pure hypercholesterolemia, unspecified Category: Medical Plan: Continue statin (6) Asthma: Comment: Controlled on Wixela and montelukast Code(s): J45.909 - Unspecified asthma, uncomplicated Category: Medical Qualifiers: Asthma severity: moderate Asthma persistence: persistent Asthma complication type: uncomplicated Qualified Code(s): J45.40 - Moderate persistent asthma, uncomplicated Plan: Follow-up with pulmonology (7) Anemia: Code(s): D64.9 - Anemia, unspecified Category: Medical Plan: Continue iron supplement monitor CBC Orders: Orders Comprehensive [place]. Panel Fast 6 Months D64.9 - Anemia, unspecified, E55.9 - Vitamin D deficiency, unspecified, E78.00 - Pure hypercholesterolemia, unspecified, M81.0 - Age-related osteoporosis without current pathological fracture, N18.30 - Chronic kidney disease, stage 3 unspecified Lipid Panel 6 Months D64.9 - Anemia, unspecified, E55.9 - Vitamin D deficiency, unspecified, E78.00 - Pure hypercholesterolemia, unspecified, M81.0 - Age- related osteoporosis without current pathological fracture, N18.30 - Chronic kidney disease, stage 3 unspecified Hemoglobin A1c 6 Months D64.9 - Anemia, unspecified, E55.9 - Vitamin D deficiency, unspecified, E78.00 - Pure hypercholesterolemia, unspecified, M81.0 - Age-related osteoporosis without current pathological fracture, N18.30 - Chronic kidney disease, stage 3 unspecified Vitamin B12 and Folate 6 Months D64.9 - Anemia, unspecified, E55.9 - Vitamin D deficiency, unspecified, E78.00 - Pure hypercholesterolemia, unspecified, M81.0 - Age-related osteoporosis without current pathological fracture, N18.30 - Chronic kidney disease, stage 3 unspecified Vitamin D 25-OH Total 6 Months D64.9 - Anemia, unspecified, E55.9 - Vitamin D deficiency, unspecified, E78.00 - Pure hypercholesterolemia, unspecified, M81.0 - Age-related osteoporosis without current pathological fracture, N18.30 - Chronic kidney disease, stage 3 unspecified Complete Blood Count Auto Diff 6 Months D64.9 - Anemia, unspecified, E55.9 - Vitamin D deficiency, unspecified, E78.00 - Pure hypercholesterolemia, unspecified, M81.0 - Age-related osteoporosis without current pathological fracture, N18.30 - Chronic kidney disease, stage 3 unspecified TSH reflex Free T4 6 Months D64.9 - Anemia, unspecified, E55.9 - Vitamin D deficiency, unspecified, E78.00 - Pure hypercholesterolemia, unspecified, M81.0 - Age-related osteoporosis without current pathological fracture, N18.30 - Chronic kidney disease, stage 3 unspecified IRON PROFILE 6 Months D64.9 - Anemia, unspecified, E55.9 - Vitamin D deficiency, unspecified, E78.00 - Pure hypercholesterolemia, unspecified, M81.0 - Age-related osteoporosis without current pathological fracture, N18.30 - Chronic kidney disease, stage 3 unspecified Referrals Speech and Hearing Referral H91.90 - Unspecified hearing loss, unspecified ear Medications: Refilled olmesartan 20 mg PO DAILY 90 tabs 3RF simvastatin 20 mg PO DAILY 90 tabs 3RF E78.00 - Pure hypercholesterolemia, unspecified montelukast 10 mg PO DAILY 90 tabs 3RF alendronate (Fosamax) 70 mg PO QWEEK 14 tabs 3RF
[2024-02-22 13:12] VITALS: BP 124/70; PULSE 84; O2SAT 98; BMI 20.1
== END 2024-02-22 14:25 | disposition home or self-care (01) ==
PROVIDERS: PCP Internal Medicine; Visit Provider Internal Medicine
DX: Z00.00 Encounter for general adult medical examination without abnormal findings (principal); N18.30 Chronic kidney disease, stage 3 unspecified; M81.0 Age-related osteoporosis without current pathological fracture; E78.00 Pure hypercholesterolemia, unspecified; J45.40 Moderate persistent asthma, uncomplicated; D64.9 Anemia, unspecified

== ENCOUNTER → 2024-02-22 13:04 | Outpatient (BNVA) | payer MEDICARE, OTHER, SELFPAY | PROVIDERS: PCP Internal Medicine; Visit Provider Internal Medicine | DX: H91.90 Unspecified hearing loss, unspecified ear (principal); Z00.00 Encounter for general adult medical examination without abnormal findings; N18.30 Chronic kidney disease, stage 3 unspecified; M81.0 Age-related osteoporosis without current pathological fracture; E78.00 Pure hypercholesterolemia, unspecified; J45.40 Moderate persistent asthma, uncomplicated; D64.9 Anemia, unspecified | CPT/HCPCS: 99397 ==

== ENCOUNTER 2024-04-03 11:08 | Outpatient (AMB) | payer MEDICARE, OTHER, SELFPAY ==
--- NOTE | 2024-04-03 11:10 | A.OFFVIS_ITS ---
Intake Visit Reasons: 1y/US(set) Intake Note: Patient is present for follow up kidney stone, imaging 02/06/24 Urology Medications: None Blood Thinner: none Needle Maker Required: No Accompanied by: Self / Same As Patient Allergies lisinopril Adverse Reaction (Intermediate, Verified 04/03/24 11:11) Cough seasonal Adverse Reaction (Severe, Uncoded 04/03/24 11:11) seasonal allergies [facility] Medical History (Updated 02/22/24 @ 14:25 by Kristine Ribeiro MD) Osteoporosis Cough due to SAMSON inhibitor Murmur Normal colonoscopy Mammogram normal Annual physical exam Chronic allergic rhinitis Hypercholesteremia Chronic restrictive lung disease Asthma Surgical History Hx of section Family History Father Hypertension Mother No problems noted. Brother Mental health disorder Social History Housing: House Patient Tobacco Use Status: Never used Tobacco e-Cigarette/Vaping Use: Never Used service: No Current occupational status: retired Cognitive needs: No Hearing needs: No Vision needs: Yes Assessment & Plan Assessment & Plan Orders: Orders AMB Urinalysis Automated Today Z13.9 - Encounter for screening, unspecified Coding
--- NOTE | 2024-04-03 11:35 | A.OFFVIS_ITS ---
Intake Visit Reasons: 1y/US(set) Allergies lisinopril Adverse Reaction (Intermediate, Verified 04/03/24 12:09) Cough seasonal Adverse Reaction (Severe, Uncoded 04/03/24 12:09) seasonal allergies Medication List - Last Reconciled 04/03/24 by DIMPLE Brown albuterol sulfate 90 mcg/actuation 2 inhalations inhalation Q6H PRN 30 days alendronate (Fosamax) 70 mg PO QWEEK azelastine 2 sprays intranasal BID 30 days clonazepam mg PO diphenhydramine HCl (Benadryl) 50 mg PO BEDTIME escitalopram oxalate 20 mg PO DAILY fluticasone propion-salmeterol 250-50 mcg/dose (Wixela Inhub) 1 inh inhalation Q12H 30 days montelukast 10 mg PO DAILY olmesartan 20 mg PO DAILY simvastatin 20 mg PO DAILY HPI Comments Details: Rosa is a pleasant 73-year-old female patient of Dr. Fisher. She has a past medical history of murmur, osteopenia, allergic rhinitis, hypercholesteremia, COPD, and asthma. She presents to the office today for follow-up of her nephrolithiasis. Recent renal imaging results reviewed with the patient today. Bilateral kidneys with no calculi, lesions, and or hydronephrosis noted. Normal renal ultrasound no nephrolithiasis noted. When asked patient reports to be doing and feeling well. She denies any bothersome urinary issues or concerns at this time. She denies urinary urgency, urinary frequency, incontinence, nocturia, hematuria, dysuria, foul smelling urine, changes to urinary stream, flank pain, fever, and or chills. She does discuss taking care of her 14-year-old grandson. She is happy with her current voiding parameters. Patient otherwise denies any other issues or concerns at this time. [facility] Medical History Osteoporosis Cough due to SAMSON inhibitor Murmur Normal colonoscopy Mammogram normal Annual physical exam Chronic allergic rhinitis Hypercholesteremia Chronic restrictive lung disease Asthma Surgical History Hx of section Family History Father Hypertension Mother No problems noted. Brother Mental health disorder Social History Housing: House Patient Tobacco Use Status: Never used Tobacco e-Cigarette/Vaping Use: Never Used service: No Current occupational status: retired Cognitive needs: No Hearing needs: No Vision needs: Yes Review of Systems Eyes Reports no additional complaints ENT Reports no additional complaints Card Reports as per HPI Resp Reports as per HPI GI Reports no additional complaints Reports as per HPI Musc Reports no additional complaints Neuro Reports no additional complaints Psych Reports no additional complaints Endo Reports no additional complaints Ty/Lymph Reports no additional complaints Aller/Immun Reports no additional complaints Physical Exam Const General: cooperative, healthy appearing, comfortable, no acute distress, well developed, alert and awake Nutritional Appearance: average body habitus Orientation/consciousness: patient oriented x3 Limitations: no limitations HEENT Head: Yes normal to inspection, Yes normocephalic and Yes atraumatic Ears: hearing grossly normal bilaterally Eyes General: appearance normal, both eyes and all related structures Neck Neck: Yes normal visual inspection and Yes trachea midline Chest Chest palpation & inspection: normal inspection of the chest Resp Effort & Inspection: normal respiratory effort and able to speak in complete sentences Cardio Rate: regular rate GI Inspection: Yes normal to inspection General: Yes no CVA tenderness Back/Spine/Pelvis Back: no CVA tenderness Skin General skin exam: no rashes or lesions noted Neuro General: patient oriented x3 Extrem General: Yes normal to inspection Psych Appearance: grossly normal and well kempt Mental Status: mental status grossly normal Speech and movement: Normal speech and movement present and Clear speech present Affect: normal affect Attitude: cooperative Thought process: Normal thought process present Thought content: Normal thought content present Insight: Good insight present (Psych) Judgement: Good judgement present (Psych) Results AMB Urinalysis, Automated UA Leukoctes 15 Kaycee/uL Last Edit by Tao Gruber on 04/03/24 11:40 UA Nitrite Last Edit by Tao Gruber on 04/03/24 11:40 UA Urobilinogen 0.2 mg/dL Last Edit by Tao Gruber on 04/03/24 11:40 UA Protein 15 mg/dL Last Edit by Tao Gruber on 04/03/24 11:40 UA pH 6.0 Last Edit by Tao Gruber on 04/03/24 11:40 UA Blood 0 Wilian/uL Last Edit by Tao Gruber on 04/03/24 11:40 UA Specific [place] 1.020 Last Edit by Tao Gruber on 04/03/24 11:40 UA Ketone Negative Last Edit by Tao Gruber on 04/03/24 11:40 UA Bilirubin 0 mg/dL Last Edit by Tao Gruber on 04/03/24 11:40 UA Glucose 0 mg/dL Last Edit by Tao Gruber on 04/03/24 11:40 Results Reviewed Results Reviewed: Laboratory Last Values Urine pH (Auto) 6.0 04/03/24 11:12 Specific [place] (Auto) 1.020 04/03/24 11:12 Urine Protein (Auto) 15 mg/dL 04/03/24 11:12 Glucose (UA)(Auto) 0 mg/dL 04/03/24 11:12 Urine Ketones (Auto) Negative 04/03/24 11:12 Urine Blood (Auto) 0 Wilian/uL 04/03/24 11:12 Urine Bilirubin (Auto) 0 mg/dL 04/03/24 11:12 Urine Urobilinogen (Auto) 0.2 mg/dL 04/03/24 11:12 Leukocyte Esterase (Auto) 15 Kaycee/uL 04/03/24 11:12 Date of Service: 02/06/24 EXAMINATION: US RETROPERITONEAL LIMITED (RENAL ONLY) FINDINGS: RIGHT KIDNEY: 10.1 x 4.1 x 5.3 cm (SAG x AP x TRV). The kidney is normal in size, contour, and echogenicity. Renal cortical thickness is normal. No calculi or focal parenchymal lesions. No hydronephrosis. LEFT KIDNEY: 9.6 x 4.4 x 4.2 cm (SAG x AP x TRV). The kidney is normal in size, contour, and echogenicity. Renal cortical thickness is normal. No calculi or focal parenchymal lesions. No hydronephrosis. IMPRESSION: Normal renal ultrasound. No stones found. Assessment & Plan Assessment & Plan (1) Nephrolithiasis: Comment: small nonobstructing kidney stone on US 02/19, recheck in 6 months Code(s): N20.0 - Calculus of kidney Category: Medical Plan Recent renal imaging results reviewed with the patient today; as noted above. Patient denies any bothersome urinary issues or concerns at this time. Educated, encouraged, and instructed on the importance of drinking plenty of water daily. Continue adding 1 oz of lemon juice to water daily. Renal ultrasound in 1 year. Patient reports be happy with current voiding parameters. Follow-up in 1 year with imaging to be completed prior; or sooner with any issues, concerns, and or questions. Orders: Orders AMB Urinalysis Automated Today Z13.9 - Encounter for screening, unspecified US renal BI 1 Year N20.0 - Calculus of kidney Patient Instructions: The patient had an opportunity to ask questions regarding the treatment plan. All questions were answered. Physical exam, labs, and imaging were discussed and reviewed in detail. As well as risks, benefits, and discussion of treatment choices. No major barriers to understanding were identified. The patient expressed understanding and agreement with the above treatment plan. The patient was made aware they should contact our office by phone for worsening of their current condition, the appearance of new symptoms, or with any questions or concerns. Compliance is encouraged with any medications and follow up testing that is ordered. It is a privilege to be allowed the opportunity to participate in? your urological care.? Again, if you have any questions or concerns If you have any questions or concerns please do not hesitate to contact me. The office is [phone]. This note is constructed using voice recognition software. While every effort has been made to ensure accuracy surface supply breathing apparatus errors may have been included. Yours sincerely, DIMPLE Brown Coding Level of Care Code Est Pt Level 3 (33039) Complex EM visit Add On G2211 Diagnoses Nephrolithiasis N20.0
== END 2024-04-03 12:08 | disposition home or self-care (01) ==
PROVIDERS: PCP Internal Medicine; Visit Provider Nurse Practitioner Family
DX: Z13.9 Encounter for screening, unspecified (principal); N20.0 Calculus of kidney
CPT/HCPCS: 99213; G2211

== ENCOUNTER → 2024-04-03 11:08 | Outpatient (BNVA) | payer MEDICARE, OTHER, SELFPAY | PROVIDERS: PCP Internal Medicine; Visit Provider Nurse Practitioner Family | DX: N20.0 Calculus of kidney (principal) | CPT/HCPCS: 81003; 99212 ==

== ENCOUNTER 2024-05-10 14:06 | Outpatient (AMB) | payer MEDICARE, OTHER, SELFPAY ==
--- NOTE | 2024-05-10 14:41 | AM.OFFWIN_ITS ---
Intake Vital Signs 05/10/24 14:42 Weight 118 lb BP 130/80 Blood Pressure Location Rt brachial Position Sitting Pulse 68 Pulse Source Pulse Oximeter Temp 98.7 F Temp Source Oral Pulse Oximetry (%) 97 Oxygen Delivery Method Room Air Intake Visit Reasons: EP ?sinus infection Intake Note: Patient here for sinus congestion, headache, cough which has been present since march that never fully went away. Patient Tobacco Use Status: Never used Tobacco Allergies lisinopril Adverse Reaction (Intermediate, Verified 05/10/24 14:42) Cough seasonal Adverse Reaction (Severe, Uncoded 05/10/24 14:42) seasonal allergies Do you need a note to return to daycare/school/sports/work: No HPI HPI Comments History of Present Illness Details History - The patient is a 73-year-old female pr esenting with a sinus infection characterized by persistent cough and production of discolored phlegm. - She reports feeling persistently fatig ued and sleeping excessively, about 10- 11 hours nightly, which affects her energy levels. - Sinusitis episodes are recurrent, note d to occur both in summer and winter. - Previously managed with a Z-Jean Pierre (Azith romycin) in March, the treatment was partially effective but did not completely resolve her sinus infection. - No accompanying fever or ear pain is r eported, although she has been dealing w ith cerumen impaction in the right ear, affecting her hearing. Physical Exam General: Cooperative, healthy appearing, comfortable and no acute distress Orientation/consciousness: Patient oriented x3 Limitations: No limitations Head: Normal to inspection Ears: Hearing grossly normal bilaterally, external ears normal, cerumen in right ear Nose: No nasal discharge present Face and sinus: Normal facial exam and Sinuses tender Mouth: Normal oral and palatal mucosa present and moist mucous membranes Throat: Yes tonsils normal, Yes uvula midline. Posterior oropharynx erythema Eyes: Appearance normal, both eyes and all related structures Neck: Normal visual inspection Respiratory: Normal respiratory effort, able to speak in complete sentences, Actively coughing, no respiratory distress, not tachypneic, no tripod positioning and no use of accessory muscles Skin: No rashes or lesions noted Neuro: Patient oriented x3 Extremities: Normal to inspection and Yes no clubbing, cyanosis or edema PFSH Medical History Osteoporosis Cough due to SAMSON inhibitor Murmur Normal colonoscopy Mammogram normal Annual physical exam Chronic allergic rhinitis Hypercholesteremia Chronic restrictive lung disease Asthma Surgical History Hx of section Family History Father Hypertension Mother No problems noted. Brother Mental health disorder Social History Housing: House Patient Tobacco Use Status: Never used Tobacco e-Cigarette/Vaping Use: Never Used service: No Current occupational status: retired Cognitive needs: No Hearing needs: No Vision needs: Yes Review of Systems Const All systems reviewed & are unremarkable except as noted in HPI and below Physical Exam Vital Signs: Last Vital Signs Temp 98.7 F 05/10/24 14:42 Pulse 68 05/10/24 14:42 BP 130/80 05/10/24 14:42 Pulse Ox 97 05/10/24 14:42 Oxygen Delivery Method Room Air 05/10/24 14:42 Assessment & Plan Assessment & Plan (1) Sinusitis, acute: Code(s): J01.90 - Acute sinusitis, unspecified Qualifiers: Sinusitis location: ethmoidal Recurrence: non-recurrent Qualified Code(s): J01.20 - Acute ethmoidal sinusitis, unspecified Plan: Sinusitis is to be managed with Augmentin due to previous inadequate response to Azithromycin. This regimen should help address the current symptoms of sinus infection. A short-term low-dose prednisone course is also prescribed to aid recovery by reducing inflammation. For the impacted cerumen in the right ear, the use of Debrox drops is recommended to assist with wax removal and maintain ear hygiene. Careful monitoring of treatment effectiveness is suggested, alongside considerations for maintaining optimal energy levels through lifestyle modifications. Patient was informed and verbally consented to the use of an ambient scribe for clinic note documentation during this visit Medications: New prednisone 20 mg PO QAM 5 tabs 0RF amoxicillin-pot clavulanate 875-125 mg 1 tab PO Q12H 10 tabs 0RF Coding Level of Care Code Est Pt Level 3 (44595) Diagnoses Acute non-recurrent ethmoidal sinusitis J01.20 Sinusitis location: ethmoidal Recurrence: non-recurrent
[2024-05-10 14:42] VITALS: BP 130/80; PULSE 68; TEMP 37.1; O2SAT 97
== END 2024-05-10 15:37 | disposition home or self-care (01) ==
PROVIDERS: PCP Internal Medicine; Visit Provider Physician Assistant
DX: J01.20 Acute ethmoidal sinusitis, unspecified (principal)

== ENCOUNTER → 2024-05-10 14:06 | Outpatient (BNVA) | payer MEDICARE, OTHER, SELFPAY | PROVIDERS: PCP Internal Medicine; Visit Provider Physician Assistant | DX: J01.20 Acute ethmoidal sinusitis, unspecified (principal) | CPT/HCPCS: 99212 ==

== ENCOUNTER 2024-07-11 11:03 | Outpatient (REF) | payer MEDICARE, OTHER, SELFPAY ==
--- NOTE | 2024-07-11 11:08 | PFT_ITS ---
Flows: FEV1: 70 % of predicted at 1.49 L FVC: 71 % of predicted at 1.96 L FEV1/FVC: 76 % Bronchodilator response: Absent Volumes: Total lung capacity: 112 % of predicted at 5.51 L Residual volume: 169 % of predicted at 3.40 L Slow vital capacity: 74 % of predicted at 2.11 L Expiratory reserve volume: 65 % of predicted at 0.45 L Diffusion capacity: Normal Impression: No obstructive or restrictive ventilatory defect. No bronchodilator response. Increased residual volume suggests air trapping. MTDD
[2024-07-11 12:02] VITALS: PULSE 62
== END 2024-07-11 11:04 | disposition home or self-care (01) ==
LOC: HO.RESP 11:03
PROVIDERS: PCP Internal Medicine; Visit Provider Hospitalist
DX: J45.40 Moderate persistent asthma, uncomplicated (principal)
CPT/HCPCS: 94010; 94640; 94727; 94729

== ENCOUNTER → 2024-07-11 11:08 | Outpatient (BNV) | payer MEDICARE, OTHER, SELFPAY | PROVIDERS: PCP Internal Medicine; Visit Provider Internal Medicine Pulmonary Disease | DX: J45.40 Moderate persistent asthma, uncomplicated (principal) | CPT/HCPCS: 94060; 94727; 94729 ==

== ENCOUNTER 2024-08-13 11:50 | Outpatient (REF) | payer MEDICARE, OTHER, SELFPAY ==
[2024-08-13 12:05] LABS: MANUAL DIFF FLAG NO
[2024-08-13 12:19] LABS: Basophils Absolute Auto 0.1 X10*3/uL (0.0-0.2); Basophils Percent Auto 1.4 % (0-2); Eosinophils Absolute Auto 0.5 X10*3/uL (0.0-0.4); Eosinophils Percent Auto 10.8 % (0-4); Hematocrit 36.7 % (37.0-47.0); Hemoglobin 11.7 g/dl (12.0-16.0); Imm Gran Abs Auto 0.01 X10*3/uL (0.00-0.03); Imm Gran Pct Auto 0.2 % (0.0-0.4); Lymphocytes Absolute Auto 1.5 X10*3/uL (1.2-4.9); Lymphocytes Percent Auto 29.3 % (20-40); Mean Corpuscular HGB Conc 31.9 g/dl (31.0-35.0); Mean Corpuscular Hemoglobin 28.5 pg (27.0-33.0); Mean Corpuscular Volume 89.5 fL (80.0-98.0); Mean Platelet Volume 10.2 fL (9.4-12.3); Monocytes Absolute Auto 0.5 X10*3/uL (0.1-1.2); Monocytes Percent Auto 9.4 % (2-11); Neutrophils Absolute Auto 2.4 x10*3/uL (2.0-8.3); Neutrophils Percent Auto 48.9 % (45-73); Platelet Count 293 X10*3/uL (160-400); Red Cell Distribution Width 12.9 % (11.0-16.0)
[2024-08-13 12:30] LABS: Estimated Average Glucose 111 mg/dL; Hemoglobin A1C 116.3013 umol/L; Hemoglobin A1c % 5.5 % (<6.0)
[2024-08-13 13:06] LABS: Alanine Aminotransferase 14 U/L (0-31); Albumin Level 4.1 g/dL (3.5-5.0); Anion Gap 10 (12-20); Aspartate Amino Transferase 23 U/L (5-31); Bilirubin Total 0.5 mg/dL (0.0-1.0); Blood Urea Nitrogen 20 mg/dL (9-16); Calcium 9.1 mg/dL (8.4-10.2); Carbon Dioxide 26 mmol/L (22-29); Chloride 108 mmol/L (96-108); Cholesterol 202 mg/dL (<200); Estimated Glomerular Filt Rate 52; Glucose Fasting 84 mg/dL (60-99); HDL Cholesterol 81 mg/dL (>40); Iron 77 mcg/dL (30-160); LDL Cholesterol Calculated 108 mg/dL (<100); Percent Iron Saturation 25 % (15-50); Potassium 4.5 mmol/L (3.3-5.1); Sodium 139 mmol/L (135-145); Total Iron Binding Capacity 305 mcg/dL (228-428); Total Protein 6.9 g/dL (6.5-8.0); Triglycerides 66 mg/dL (<150); Unsaturated Iron Binding 228 ug/dL
[2024-08-13 13:19] LABS: Folate 8.8 ng/mL (> or = 4.0); Vitamin B12 297 pg/mL (200-900)
[2024-08-13 13:32] LABS: TSH reflex Free T4 2.04 uIU/mL (0.32-4.0); Vitamin D 25-OH Total 56.4 ng/mL (>30)
[2024-08-13 17:31] LABS: Alkaline Phosphatase 55 U/L (39-117)
== END 2024-08-13 11:51 | disposition home or self-care (01) ==
LOC: HO.LAB 11:50
PROVIDERS: PCP Internal Medicine; Visit Provider Internal Medicine
DX: D64.9 Anemia, unspecified (principal); N18.30 Chronic kidney disease, stage 3 unspecified; M81.0 Age-related osteoporosis without current pathological fracture; E78.00 Pure hypercholesterolemia, unspecified; E55.9 Vitamin D deficiency, unspecified
CPT/HCPCS: 36415; 80053; 80061; 82306; 82607; 82746; 83036; 83540; 84443; 85025

== ENCOUNTER 2024-08-15 10:48 | Outpatient (AMB) | payer MEDICARE, OTHER, SELFPAY ==
[2024-08-15 10:50] VITALS: BP 126/78; PULSE 71; RESP 18; TEMP 36.5; O2SAT 97; BMI 20.9
--- NOTE | 2024-08-15 10:50 | MHC.PC.OV ---
Vital Signs 08/15/24 10:50 Height 5 ft 4 in Weight 122 lb BMI 20.9 BP 126/78 Blood Pressure Location Rt brachial Position Sitting Respiration 18 Pulse 71 Pulse Source Pulse Oximeter Temp 97.7 F Temp Source Oral Pulse Oximetry (%) 97 Oxygen Delivery Method Room Air Intake Visit Reasons: 6 month follow up Intake Note: Pt is here today for 6 months follow up visit. Allergies lisinopril Adverse Reaction (Intermediate, Verified 08/15/24 10:50) Cough seasonal Adverse Reaction (Severe, Uncoded 08/15/24 10:50) seasonal allergies Medication List - Last Reconciled 08/15/24 by Kristine Ribeiro MD albuterol sulfate 90 mcg/actuation 2 inhalations inhalation Q6H PRN 30 days alendronate (Fosamax) 70 mg PO QWEEK azelastine 2 sprays intranasal BID 30 days clonazepam mg PO diphenhydramine HCl (Benadryl) 50 mg PO BEDTIME escitalopram oxalate 20 mg PO DAILY fluticasone propion-salmeterol 250-50 mcg/dose (Wixela Inhub) 1 inh inhalation Q12H 30 days montelukast 10 mg PO DAILY olmesartan 20 mg PO DAILY simvastatin 20 mg PO DAILY Tobacco use date assessed: 08/15/24 Fall risk assessment: No Falls in past year Last assessed Fall Risk: 08/15/24 Dental Screening Dental Screen Date: 08/15/24 Did you have a dental visit in the last 12 months?: Yes Did you have a dental problem in the last 6 months where you did not have access to dental care?: No Was dental information given to patient?: Patient has dentist HPI 6 month follow up HPI Details Pt presents for f/u HTN and hyperlipid, stable on meds. Pt had frequent sinusitis last winter. Asthma is stable on Wixela. Patient is established with counselor and psychiatric prescriber and has been taking clonazepam every night for insomnia. [facility] Medical History Osteoporosis Cough due to SAMSON inhibitor Murmur Normal colonoscopy Mammogram normal Annual physical exam Chronic allergic rhinitis Hypercholesteremia Chronic restrictive lung disease Asthma Surgical History Hx of section Family History Father Hypertension Mother No problems noted. Brother Mental health disorder Social History Housing: House Patient Tobacco Use Status: Never used Tobacco e-Cigarette/Vaping Use: Never Used service: No Current occupational status: retired Cognitive needs: No Hearing needs: No Vision needs: Yes Questionnaire PHQ-9 Over the last 2 weeks, how often have you been bothered by any of the following problems? 1. Little interest or pleasure in doing things: not at all 2. Feeling down, depressed, or hopeless: not at all 3. Trouble falling or staying asleep, or sleeping too much: not at all 4. Feeling tired or having little energy: not at all 5. Poor appetite or overeating: not at all 6. Feeling bad about yourself - or that you are a failure or have let yourself or your family down: not at all 7. Trouble concentrating on things, such as reading the newspaper or watching television: not at all 8. Moving or speaking so slowly that other people could have noticed. Or the opposite - being so fidgety or restless that you have been moving around a lot more than usual: not at all 9. Thoughts that you would be better off or of hurting yourself in some way: not at all Total score: 0 Depression Screening Interpretation: Negative Depression Screening Done: Yes 54657 - PHQ-9 Billing: Yes Source: Developed by Drs. Bacilio Broderick, Sherin Ohara, Sameer Saeed and colleagues, with an educational lópez from [employer]. Thrive Questionnaire Date Thrive assessed: 08/15/24 I am a: Patient What is your living situation today?: I have a steady place to live Within the past 12 months, did the food you bought not last and you didn't have the money to get more?: Never true Within the past 12 months, did you worry whether your food would run out before you got money to buy more?: Never true Do you have trouble paying for medicines?: No Do you have trouble getting transportation to medical appointments?: No Do you have trouble paying your heating and electricity bill?: No Do you have trouble taking care of your child, family member or friend?: No Do you have trouble with day-to-day activities such as bathing, preparing meals, shopping, managing finances, etc.?: No Are you currently unemployed and looking for a job?: No Are you interested in more education?: No Please select the resources that you would like help with: None Currently or been in a relationship where the following occur: I choose not to answer THRIVE Score: 0 AUDIT C Alcohol Use Questionnaire (AUDIT-C) 1. How often do you have a drink containing alcohol?: Never 3. How often do you have six or more drinks on one occasion?: Never Total Score: 0 SALENA-7 AMB Questionnaire SALENA-7 Date SALENA - 7 assessed: 08/15/24 Feeling nervous, anxious, or on edge: 0 = Not at all Not being able to stop or control worryin = Not at all Worrying too much about different things: 0 = Not at all Trouble relaxin = Not at all Being so restless that it is hard to sit still: 0 = Not at all Becoming easily annoyed or irritable: 0 = Not at all Feeling afraid as if something awful might happen: 0 = Not at all Total SALENA-7 score (0-4 normal; 5-9 mild; 10-14 moderate; 15-21 severe): 0 Source: Developed by Drs. Bacilio Broderick, Sherin Ohara, Sameer Saeed and colleagues, with an educational lópez from [employer]. SALENA-7 Assessment Billing SALENA-7 Assessment Tool: SALENA-7 Assessment 94893 Review of Systems Const All systems reviewed & are unremarkable except as noted in HPI and below Reports no additional complaints Eyes Reports no additional complaints ENT Reports no additional complaints Card Reports no additional complaints Resp Reports no additional complaints GI Reports no additional complaints Reports no additional complaints Physical exam (Primary Care) Vital Signs: Last Vital Signs Temp 97.7 F 08/15/24 10:50 Pulse 71 08/15/24 10:50 Resp 18 08/15/24 10:50 BP 126/78 08/15/24 10:50 Pulse Ox 97 08/15/24 10:50 Oxygen Delivery Method Room Air 08/15/24 10:50 BMI result Body Mass Index 20.9 Tobacco/Smoking Status: Tobacco use Status Tobacco use date assessed 08/15/24 08/15/24 10:56 Patient Tobacco Use Status Never used Tobacco 08/15/24 10:56 e-Cigarette/Vaping Use Never Used 08/15/24 10:56 PHQ-9: PHQ-9 Score PHQ-9: Total score 0 08/15/24 11:18 Depression Screening Interpretation: Negative Thrive Assessment: Date of Thrive Assessment Date Thrive assessed 08/15/24 08/15/24 10:56 Currently or been in a relationship where the following occur: I choose not to answer Const General: no acute distress HENMT Head: Yes normal to inspection Ears: hearing grossly normal bilaterally Face and sinus: Yes normal facial exam Mouth: Normal oral and palatal mucosa present Throat: Yes posterior oropharynx normal Eyes General: appearance normal, both eyes and all related structures Neck Neck: Yes no lymphadenopathy and Yes supple Resp Effort & Inspection: normal respiratory effort Auscultation: clear to auscultation bilaterally Cardio Rhythm: regular rhythm Heart sounds: S1 normal heart sound present and S2 normal heart sound present GI Inspection: Yes normal to inspection Palpation (GI): Soft to palpation Percussion: Yes normal to percussion Auscultation: normal bowel sounds Immunizations pneumoc 20-pedro conj-dip cr(PF) 0.5 mL IM syringe Performing Provider: Kristine Ribeiro MD Performing Location: [facility] Administered by: MISSAEL Sexton on 08/15/24 11:36 Dose Route Admin Location Dispensed Lot Number Expiration Date [employer]DC [employer] Supervisor 0.5 mL IM Left Deltoid 0.5 mL [id number] 06/28/25 [employer] VIS Given Date VIS Provided VIS Publication Date 08/15/24 Single Vaccine 21 Eligibility Eligibility Date Funding Source Not [facility] Eligible 08/15/24 Private Coding Level of Care Code Est Pt Level 4 (86913) Diagnoses CKD (chronic kidney disease) stage 3, GFR 30-59 ml/min N18.30 Osteoporosis M81.0 Moderate persistent asthma without complication J45.40 Asthma severity: moderate Asthma persistence: persistent Asthma complication type: uncomplicated Hypercholesteremia E78.00 Hypertension I10 Additional Codes SALENA-7 Assessment Billing - SALENA-7 Assessment Tool: SALENA-7 Assessment 44990 ([id number]) PHQ-9 - 52645 - PHQ-9 Billing: Yes ([id number]) Assessment & Plan Assessment & Plan (1) CKD (chronic kidney disease) stage 3, GFR 30-59 ml/min: Code(s): N18.30 - Chronic kidney disease, stage 3 unspecified Category: Medical Plan: Monitor renal function avoid nephrotoxins (2) Osteoporosis: Comment: T-score 2.9 L spine, DEXA ,Started on Fosamax 09/2023, Code(s): M81.0 - Age-related osteoporosis without current pathological fracture Category: Medical Plan: Continue Fosamax vitamin-D and calcium supplement (3) Asthma: Comment: Controlled on Wixela and montelukast Code(s): J45.909 - Unspecified asthma, uncomplicated Category: Medical Qualifiers: Asthma severity: moderate Asthma persistence: persistent Asthma complication type: uncomplicated Qualified Code(s): J45.40 - Moderate persistent asthma, uncomplicated Plan: Controlled on Wixela (4) Hypercholesteremia: Code(s): E78.00 - Pure hypercholesterolemia, unspecified Category: Medical Plan: Continue statin (5) Hypertension: Comment: ACEI caused cough Code(s): I10 - Essential (primary) hypertension Category: Medical Plan: Continue olmesartan Orders: Orders Pneumococcal 20 Immunization Today Z23 - Encounter for immunization Complete Blood Count Auto Diff 6 Months I10 - Essential (primary) hypertension, N18.30 - Chronic kidney disease, stage 3 unspecified Lipid Panel 6 Months I10 - Essential (primary) hypertension, N18.30 - Chronic kidney disease, stage 3 unspecified Comprehensive Gravel Switch. Panel Fast 6 Months I10 - Essential (primary) hypertension, N18.30 - Chronic kidney disease, stage 3 unspecified
== END 2024-08-15 11:38 | disposition home or self-care (01) ==
LOC: HO.HMCC 10:49
PROVIDERS: PCP Internal Medicine; Visit Provider Internal Medicine
DX: N18.30 Chronic kidney disease, stage 3 unspecified (principal); M81.0 Age-related osteoporosis without current pathological fracture; J45.40 Moderate persistent asthma, uncomplicated; E78.00 Pure hypercholesterolemia, unspecified; I10 Essential (primary) hypertension; Z23 Encounter for immunization

== ENCOUNTER → 2024-08-15 10:48 | Outpatient (BNVA) | payer MEDICARE, OTHER, SELFPAY | PROVIDERS: PCP Internal Medicine; Visit Provider Internal Medicine | DX: I12.9 Hypertensive chronic kidney disease with stage 1 through stage 4 chronic kidney disease, or unspecified chronic kidney disease (principal); N18.30 Chronic kidney disease, stage 3 unspecified; Z23 Encounter for immunization; M81.0 Age-related osteoporosis without current pathological fracture; J45.40 Moderate persistent asthma, uncomplicated; E78.00 Pure hypercholesterolemia, unspecified; Z79.899 Other long term (current) drug therapy | CPT/HCPCS: 90471; 90677; 96127; 99212 ==

== ENCOUNTER 2024-09-30 09:58 | Outpatient (AMB) | payer MEDICARE, OTHER, SELFPAY ==
[2024-09-30 10:03] VITALS: BP 150/78; PULSE 66; O2SAT 99; BMI 21.2
--- NOTE | 2024-09-30 10:03 | MHC.OFFVIS ---
Vital Signs 09/30/24 10:03 Height 5 ft 4 in Weight 123 lb 7.342 oz BMI 21.2 BP 150/78 H Blood Pressure Location Lt brachial Position Sitting Pulse 66 Pulse Source Pulse Oximeter Pulse Oximetry (%) 99 Oxygen Delivery Method Room Air Intake Visit Reasons: Asthma Founder / Ceo Required: No Accompanied by: self Allergies lisinopril Adverse Reaction (Intermediate, Verified 09/30/24 10:06) Cough seasonal Adverse Reaction (Severe, Uncoded 08/15/24 10:50) seasonal allergies HPI Comments Details: The patient is a 74-year-old woman with a known history of allergic rhinitis. As a child she had significant allergies and did receive allergy shots. After she became for the 1st child see stab getting allergy shots. She had been in usual state health until more recently in the last few years she has been getting frequent respiratory illnesses. She has required medications for these conditions. She has been concerned because it been happening more often more frequent. She did follow-up with her primary care doctor and had pulmonary function studies that demonstrated a reversible obstruction consistent with asthma. She also has some restriction. Based on her abnormal pulmonary function studies the patient was referred to Pulmonary. Based on the pulmonary function study she also has some restriction. On further questioning she had a fall back in 2011 which he fractured ribs. She has not had any real recent imaging studies however. She denies any eczema. She has been having some nasal congestion. She does not use the nasal steroid spray because it causes it epistaxis. Her wheezing and shortness of breaths significant improved on the current respiratory regimen. She did have blood work which we reviewed demonstrating some degree of eosinophilia on allergies. I did give her copies of the allergies. She is doing the nasal rinsing in this is effective for her. She did have a a chest x-ray which we personally reviewed. There appears to be some airspace disease and mucus plugging mainly in the right middle lobe area. Is very limited because of the x-ray. But the patient does feel better now hopeful that based on the fact that she is starting to feel better that finding on the right middle lobe area will also improved. Therefore, will have her get an x-ray in a couple months. If however the patient feels worse with increasing respiratory symptoms will repeat x-ray sooner. If the areas to persistently abnormal she will need a CT scan of the chest. 08/25/2022 the patient is here for a pulmonary follow-up visit. Overall the patient is doing relatively well. She still continues to complain about her nasal congestion. She has been using the fluticasone and also doing the Neti rinsing. The patient also has been using Sudafed. She also has Symbicort. She does not use it every day and she is doing well from a respiratory status. We did review her last chest x-ray from January 2022 demonstrating no acute disease. Her exam is also relatively normal. She does have inflammation of the nasal turbinates. The patient will benefit from additional nasal therapy. Otherwise patient is without any other complaints. 08/22/2023 the patient is here for a pulmonary follow-up visit. Overall she is doing okay. She is using the Wixela now because the Symbicort is no longer available for her. She also has a rescue inhaler although is and she needs a new 1. She still uses her inhaler but typically less than twice a week. She is noticed worsening cough lately though. The cough is nonproductive in nature and hacky. Moderate severity. She is wondering if the rescue inhaler will be effective in helping symptoms. Although the same time she was noted to have issues with a high blood pressure and also renal insufficiency and she was placed on lisinopril. Explained to her that this likely is related cough. I did reach out to her primary care to see if we can switch her off the SAMSON inhibitor and placed on her ARB. In the meantime the patient will be provided a rescue inhaler that she can use as needed. We did look at her last chest x-ray that she had today. The x-ray has not been officially read but did personally reviewed without any acute disease. If there is anything else that was identified on the x-ray I will let her know. Otherwise patient is doing well from a respiratory status will follow-up in a year's time with pulmonary function studies. If she has any worsening symptoms prior to that visit she will call for an earlier assessment. 09/30/2024 the patient is here for pulmonary follow-up visit. Overall the patient has been doing well. She continues on the Wixela regularly. Denies having to use her rescue inhaler. Her cough is overall better. She walks regularly. She denies any significant shortness of breath or wheezing. The patient did undergo pulmonary function studies which we personally reviewed. She appears to have no definitive obstruction although she does have some concavity to the expiratory limb suggesting obstructive physiology. In addition to that she does have significant hyperinflation and air trapping likely from small airway disease in her asthma. Based on that will go ahead and switch her over to Trelegy to see this provides further bronchodilation in improvement in her respiratory capacity. If she does not see any significant improvement she can go back on Wixela otherwise follow-up in a year's time. [facility] Medical History Osteoporosis Cough due to SAMSON inhibitor Murmur Normal colonoscopy Mammogram normal Annual physical exam Chronic allergic rhinitis Hypercholesteremia Chronic restrictive lung disease Asthma Surgical History Hx of section Family History Father Hypertension Mother No problems noted. Brother Mental health disorder Social History Housing: House Patient Tobacco Use Status: Never used Tobacco e-Cigarette/Vaping Use: Never Used service: No Current occupational status: retired Cognitive needs: No Hearing needs: No Vision needs: Yes Review of Systems Const Denies night sweats ENT Denies change in voice, Reports otalgia, Denies lip swelling, Denies mouth pain, Reports nasal congestion, Reports nasal discharge and Denies tongue swelling Card Denies chest pain and Denies dyspnea on exertion Resp Reports cough and Denies dyspnea on exertion GI Denies abdominal pain Musc Denies no additional complaints Neuro Denies Neuro-related abnormal movements Psych Denies no additional complaints Ty/Lymph Denies easy bleeding and Denies lymphadenopathy Aller/Immun Denies lip swelling and Denies tongue swelling Physical Exam Vital Signs: Last Vital Signs Pulse 66 09/30/24 10:03 BP 150/78 H 09/30/24 10:03 Pulse Ox 99 09/30/24 10:03 Oxygen Delivery Method Room Air 09/30/24 10:03 BMI result Body Mass Index 21.2 Const General: cooperative, healthy appearing, comfortable, no acute distress, well developed, alert and awake Nutritional Appearance: average body habitus Orientation/consciousness: patient oriented x3 Limitations: no limitations HEENT Head: Yes normal to inspection, Yes normocephalic and Yes atraumatic Ears: hearing grossly normal bilaterally Eyes General: appearance normal, both eyes and all related structures Neck Neck: Yes normal visual inspection and Yes trachea midline Chest Chest palpation & inspection: normal inspection of the chest Resp Effort & Inspection: normal respiratory effort and able to speak in complete sentences Auscultation: diminished lung sounds Cardio Rate: regular rate GI Inspection: Yes normal to inspection General: Yes no CVA tenderness Back/Spine/Pelvis Back: no CVA tenderness Skin General skin exam: no rashes or lesions noted Neuro General: patient oriented x3 Extrem General: Yes normal to inspection Psych Appearance: grossly normal and well kempt Mental Status: mental status grossly normal Speech and movement: Normal speech and movement present and Clear speech present Affect: normal affect Attitude: cooperative Thought process: Normal thought process present Thought content: Normal thought content present Insight: Good insight present (Psych) Judgement: Good judgement present (Psych) Assessment & Plan Assessment & Plan (1) Asthma: Comment: Wixela and montelukast Code(s): J45.909 - Unspecified asthma, uncomplicated Category: Medical Qualifiers: Asthma complication type: uncomplicated Asthma persistence: persistent Asthma severity: moderate Qualified Code(s): J45.40 - Moderate persistent asthma, uncomplicated Plan: continue Symbicort Start using a spacer (provided) (2) Chronic restrictive lung disease: Code(s): J98.4 - Other disorders of lung Category: Medical Plan: Will repeat PFTs during her next visit (3) Chronic allergic rhinitis: Code(s): J30.9 - Allergic rhinitis, unspecified Category: Medical Plan: Allergy medicine (4) Cough due to SAMSON inhibitor: Code(s): R05.8 - Other specified cough; T46.4X5A - Adverse effect of nbqbkabdhyb-xvbcdefygg-vrotmx inhibitors, initial encounter Category: Medical Plan hold Wixela Trial Trlegy to help with the air trapping continue Fluticasone asteline nasal spray Nasal sinus rinse with distilled water Continue singular CXR Follow-up 10-12 months Orders: Orders XR chest 2V Today J45.40 - Moderate persistent asthma, uncomplicated Medications: New ggmiuvcpbvo-nwgyqmvzn-wewvwcpk 200-62.5-25 mcg (Trelegy Ellipta) 1 inh inhalation DAILY 60 ea 12RF 30 days Refilled albuterol sulfate 90 mcg/actuation 2 inhalations inhalation Q6H PRN 18 grams 12RF shortness of breath or wheezing 30 days J44.9 - Chronic obstructive pulmonary disease, unspecified Coding Level of Care Code Est Pt Level 4 (01791) Complex EM visit Add On G2211 Diagnoses Moderate persistent asthma without complication J45.40 Asthma complication type: uncomplicated Asthma persistence: persistent Asthma severity: moderate Chronic restrictive lung disease J98.4 Chronic allergic rhinitis J30.9 Cough due to SAMSON inhibitor R05.8; T46.4X5A Time Spent (min) 17
== END 2024-09-30 10:44 | disposition home or self-care (01) ==
LOC: HO.HPS 09:59
PROVIDERS: PCP Internal Medicine; Visit Provider Hospitalist
DX: J45.40 Moderate persistent asthma, uncomplicated (principal); J98.4 Other disorders of lung; J30.9 Allergic rhinitis, unspecified; R05.8 Other specified cough; T46.4X5A Adverse effect of angiotensin-converting-enzyme inhibitors, initial encounter
CPT/HCPCS: 99214; G2211

== ENCOUNTER → 2024-09-30 09:58 | Outpatient (BNVA) | payer MEDICARE, OTHER, SELFPAY | PROVIDERS: PCP Internal Medicine; Visit Provider Hospitalist | DX: J44.9 Chronic obstructive pulmonary disease, unspecified (principal); J45.40 Moderate persistent asthma, uncomplicated; J98.4 Other disorders of lung; J30.9 Allergic rhinitis, unspecified; R05.8 Other specified cough; T46.4X5A Adverse effect of angiotensin-converting-enzyme inhibitors, initial encounter; X58.XXXA Exposure to other specified factors, initial encounter; Y93.9 Activity, unspecified; Y92.9 Unspecified place or not applicable; Y99.9 Unspecified external cause status | CPT/HCPCS: 99212 ==

== ENCOUNTER 2024-10-04 11:29 | Outpatient (REF) | payer MEDICARE, OTHER, SELFPAY ==
--- NOTE | ~2024-10-04 | XR_ITS ---
EXAMINATION: XR CHEST CLINICAL INFORMATION: J45.40 - Moderate persistent asthma, uncomplicated COMPARISON: August 22, 2023 TECHNIQUE: 2 views of the chest were obtained. FINDINGS: There is a new linear density in the mid and lower right lung zone extending from the medial lower to the lateral mid third lung zone. Lungs are clear and well aerated otherwise. There is no pleural effusion. Cardiac and mediastinal contours are unchanged with persistent borderline prominence of the right hilum. There is a tortuous aorta. Disc space narrowing is seen throughout the thoracic spine and there are anterior osteophytes and sclerosis in the mid to lower thoracic spine. XR/XR chest 2V IMPRESSION: New linear atelectasis in the right mid third to lower third lung zone. Degenerative disease is present in the mid and lower thoracic spine. Electronically signed by: Irving Amaral MD 10/04/2024 12:14 PM EDT
== END 2024-10-04 11:30 | disposition home or self-care (01) ==
LOC: HO.XRAY 11:29
PROVIDERS: PCP Internal Medicine; Visit Provider Hospitalist
DX: J45.40 Moderate persistent asthma, uncomplicated (principal)
CPT/HCPCS: 71046

== ENCOUNTER → 2024-10-04 11:32 | Outpatient (BNV) | payer MEDICARE, OTHER, SELFPAY | PROVIDERS: PCP Internal Medicine; Visit Provider Radiology Diagnostic Radiology | DX: R91.8 Other nonspecific abnormal finding of lung field (principal) | CPT/HCPCS: 71046 ==

== ENCOUNTER → 2024-10-15 11:00 | Outpatient (BNV) | payer MEDICARE, OTHER, SELFPAY | PROVIDERS: PCP Internal Medicine; Visit Provider Internal Medicine | DX: Z12.31 Encounter for screening mammogram for malignant neoplasm of breast (principal) | CPT/HCPCS: 77063; 77067 ==

== ENCOUNTER 2024-10-15 11:03 | Outpatient (REF) | payer MEDICARE, OTHER, SELFPAY | END 2024-10-15 11:04 | disposition home or self-care (01) | LOC: HO.MAMMO 11:03 | PROVIDERS: PCP Internal Medicine; Visit Provider Internal Medicine | DX: Z12.31 Encounter for screening mammogram for malignant neoplasm of breast (principal) | CPT/HCPCS: 77063; 77067 ==

== ENCOUNTER 2024-11-08 19:29 | Emergency (ER) | payer MEDICARE, OTHER, SELFPAY ==
--- NOTE | ~2024-11-08 | XR_ITS ---
CLINICAL HISTORY: trauma 3 view right foot Comparison: None provided Findings: There are small avulsed bone fragments associated with the anterior aspects of the talus and navicular with adjacent soft tissue edema. Mild arthritic change. No ankle effusion. No radiopaque foreign body. IMPRESSION: Avulsion fractures of the anterior aspects of the talus and navicular. This document has been electronically signed by: Chandni Sorto MD on 11/08/2024 20:52:45
--- NOTE | ~2024-11-08 | XR_ITS ---
CLINICAL HISTORY: trauma 3 view right ankle Comparison: None provided Findings: 7 mm avulsed bone fragment associated with the anterior talus. 4 mm avulsed bone fragment associated with the anterior navicular. Overlying soft tissue edema. Lateral soft tissue edema is also present. No significant arthritic change or erosions. No ankle effusion. No radiopaque foreign body. IMPRESSION: Acute appearing avulsion fractures of the talus and navicular. This document has been electronically signed by: Chandni Sorto MD on 11/08/2024 20:45:52
[2024-11-08 19:40] VITALS: BP 128/78; PULSE 72; RESP 16; TEMP 37.1; O2SAT 97; BMI 21.6
--- NOTE | 2024-11-08 19:42 | ED_ITS ---
HPI - General Adult General Chief complaint: Extremity Injury, Lower Stated complaint: twisted rt ankle Time Seen by Provider: 11/08/24 22:04 Source: patient Limitations: no limitations History of Present Illness ED Provider: Betty Armando PA-C HPI narrative: 74-year-old female with a history of hypertension, chronic kidney disease, hyperlipidemia, asthma, osteoporosis, who presents with right foot and ankle p ain. Patient states she twisted her ankle, prior to the onset of pain. Related Data Home Medications ?Medication ?Instructions ?Recorded ?Confirmed escitalopram oxalate 20 mg tablet 20 mg PO DAILY 05/2608/15/24 diphenhydramine HCl 25 mg capsule 50 mg PO BEDTIME 08/15/24 (Benadryl) clonazepam 0.5 mg tablet mg PO 04/03/24 08/15/24 Previous Rx's ?Medication ?Instructions ?Recorded alendronate 70 mg tablet (Fosamax) 70 mg PO QWEEK #14 tabs 02/22/24 montelukast 10 mg tablet 10 mg PO DAILY #90 tabs 01/30 08/22 olmesartan 20 mg tablet 20 mg PO DAILY #90 tabs 01/30 08/22 simvastatin 20 mg tablet 20 mg PO DAILY #90 tabs 01/30 08/22 fluticasone 250 mcg-salmeterol 50 1 inh inhalation Q12 H 30 days #60 07/05/24 mcg/dose blistr powdr for ea inhalation (Wixela Inhub) albuterol sulfate 90 mcg/actuation 2 inh inhalation Q6 H PRN shortness 09/30/24 aerosol inhaler of breath or wheezing 30 day s #18 grams fluticasone fur. 200 mcg-umeclid 1 inh inhalation ALEX Y 30 days #60 09/30/24 62.5 mcg-vilant 25 mcg ea inhalat.powder (Trelegy Ellipta) Allergies Allergy/AdvReac Type Severity Reaction Status Date / Time lisinopril AdvReac Intermediate Cough Verified 11/08/24 19:42 seasonal AdvReac Severe seasonal Uncoded 11/08/24 19:42 allergies Review of Systems Review of Systems: Yes all other systems are reviewed and are negative Constitutional: Constitutional: Denies fatigue and Denies fever(s) Musculoskeletal: Musculoskeletal: Reports arthralgias and Reports joint swelling Endocrine: Endocrine: Denies fatigue [facility] Past Medical History Attestation statement: The following information was validated with the patient. Medical History Osteoporosis Cough due to SAMSON inhibitor Murmur Normal colonoscopy Mammogram normal Annual physical exam Chronic allergic rhinitis Hypercholesteremia Chronic restrictive lung disease Asthma Surgical History Hx of section Family History Family History Father Hypertension Mother No problems noted. Brother Mental health disorder Social History Social History Housing: House Patient Tobacco Use Status: Never used Tobacco e-Cigarette/Vaping Use: Never Used Advance Directives: No Advance Directives Information Provided: Yes service: No Current occupational status: retired Cognitive needs: No Hearing needs: No Vision needs: Yes Physical Exam ED Vital Signs: Vital Signs - 24 hr 11/08/24 19:40 11/08/24 22:01 Temperature 98.8 F 97.7 F Pulse Rate 72 65 Respiratory Rate 16 16 Blood Pressure 128/78 136/81 Pulse Oximetry 97 98 Oxygen Delivery Method Room Air Room Air BMI result Body Mass Index 21.6 Const Other: Alert well-appearing Orientation/consciousness: patient oriented x3 Resp Effort & Inspection: normal respiratory effort Cardio Other: Normal peripheral perfusion Skin Other: Warm dry no rash Neuro General: patient oriented x3, no focal motor deficits and CN's II-XI intact bilaterally Extrem Other: The entire right foot is ecchymotic, especially along the lateral aspect and swollen, she is able to flex and extend from the ankle she is having minimal pain Psych Other: Cooperative Course Course Course Narrative: RME, this is a rapid medical exam performed by Kevin Lowe please refer to primary provider for complete H&P- 74 year old female presents for right ankle and foot pain since twisting her ankle around 1pm today. Plan for x-rays Consultations Consultation #1: per Lorenzo Roy PA-C from ortho..... Short walking boot, crutches, follow up in the office with a 1-2 weeks Time: 22:09 Medical Decision Making Medical Decision Making MDM Narrative: 74-year-old female with a history of hypertension, chronic kidney disease, hyperlipidemia, asthma, osteoporosis, who presents with right foot and ankle pain. Patient states she twisted her ankle, prior to the onset of pain. Problem: Osteoporosis History: Per patient I have considered the following differential diagnoses: Fracture, dislocation, sprain, contusion Plan: X-rays obtained from triage, she has a fracture. I have independently reviewed the following tests: X-ray foot: Findings: There are small avulsed bone fragments associated with the anterior aspects of the talus and navicular with adjacent soft tissue edema. Mild arthritic change. No ankle effusion. No radiopaque foreign body. IMPRESSION: Avulsion fractures of the anterior aspects of the talus and navicular. X-ray ankle:Findings: 7 mm avulsed bone fragment associated with the anterior talus. 4 mm avulsed bone fragment associated with the anterior navicular. Overlying soft tissue edema. Lateral soft tissue edema is also present. No significant arthritic change or erosions. No ankle effusion. No radiopaque foreign body. IMPRESSION: Acute appearing avulsion fractures of the talus and navicular. This document has been electronically signed by: Chandni Sorot MD on Discharge Plan Discharge Clinical Impression: Foot fracture, right Patient Disposition: Home, Self-Care Instructions: Foot Fracture in Adults (ED) Additional Instructions: You sustained a foot fracture of the right foot. Use the walking boot while ambulating, use the crutches as needed, bear weight as tolerated. Use ibuprofen 600 mg taken every 6 hours with food for your pain. While not wearing the boot elevate the leg and ice it several times a day. I am providing you with a contact for the orthopedic service, call tomorrow to schedule an appointment, you should be seen within 1-2 weeks. They we will be expecting your call. Prescriptions: No Action fluticasone propion-salmeterol [Wixela Inhub] 250-50 mcg/dose blister with device 1 inh inhalation Q12H 30 Days Qty: 60 9RF diphenhydramine HCl [Benadryl] 25 mg capsule 50 mg PO BEDTIME escitalopram oxalate 20 mg tablet 20 mg PO DAILY clonazepam 0.5 mg tablet PO olmesartan 20 mg tablet 20 mg PO DAILY Qty: 90 3RF simvastatin 20 mg tablet 20 mg PO DAILY Qty: 90 3RF montelukast 10 mg tablet 10 mg PO DAILY Qty: 90 3RF alendronate [Fosamax] 70 mg tablet 70 mg PO QWEEK Qty: 14 3RF Trelegy Ellipta 200-62.5-25 mcg blister with device 1 inh inhalation DAILY 30 Days Qty: 60 12RF albuterol sulfate 90 mcg/actuation HFA aerosol inhaler 2 inh inhalation Q6H PRN (Reason: shortness of breath or wheezing) 30 Days Qty: 18 12RF Referrals: Ti Mendes MD [Physician, Orthopedics] Referral Note: right avuslion fx navicular and talus right foot Print Language: Kazakh
[2024-11-08 22:01] VITALS: BP 136/81; PULSE 65; RESP 16; TEMP 36.5; O2SAT 98
[2024-11-08 23:27] VITALS: BP 136/81; PULSE 65; RESP 16; TEMP 36.5; O2SAT 98
== END 2024-11-08 23:28 | disposition home or self-care (01) ==
PROVIDERS: Emergency Provider Emergency Medicine Emergency Medical Services; PCP Internal Medicine
DX: S92.811A Other fracture of right foot, initial encounter for closed fracture (principal); X50.1XXA Overexertion from prolonged static or awkward postures, initial encounter; M25.571 Pain in right ankle and joints of right foot; Y93.9 Activity, unspecified; Y92.9 Unspecified place or not applicable; Y99.9 Unspecified external cause status
CPT/HCPCS: 73610; 73630; 99284

== ENCOUNTER → 2024-11-08 19:42 | Outpatient (BNV) | payer MEDICARE, OTHER, SELFPAY | PROVIDERS: PCP Internal Medicine; Visit Provider Radiology Diagnostic Radiology | DX: S92.151A Displaced avulsion fracture (chip fracture) of right talus, initial encounter for closed fracture (principal); R22.41 Localized swelling, mass and lump, right lower limb | CPT/HCPCS: 73610; 73630 ==

== ENCOUNTER 2024-11-12 16:37 | Outpatient (REF) | payer MEDICARE, OTHER, SELFPAY ==
--- NOTE | ~2024-11-12 | CT_ITS ---
CLINICAL HISTORY: POLYP OF NASAL CAVITY CT sinuses without contrast Comparison: None provided Findings: Minimal left maxillary mucosal thickening. Minimal right sphenoid mucosal thickening. Remaining sinuses are clear. Ostiomeatal complexes are patent. No acute bony abnormality. Impression: No significant abnormality This document has been electronically signed by: Chuy Forte MD on 11/13/2024 21:26:38
--- OUTSIDE RECORDS SUMMARY | 2024-11-12 16:52 | XMS_ITS | Patient Health Record ---
Author Organization [facility] Address [address] [place] [address] Care Team Providers Care Rn Home Health Name Role Phone Leonila(inactive) Asa RAMEY Primary Care Provider U Fausto Obregon Unavailable [phone] Reason For Referral No Information Medications Medication SIG (Take, Route, Fr equency, Duration) Notes Start Date End Date Status Lexapro 20mg Active clonazePAM 0.5 MG (Schedule IV Drug) T JOSETTE 1/2 TO 1 TABLET BY MOUTH EVERY EVENING AT BEDTIME NEEDED FOR INSOMNIA Oral for 30 Active Simvastatin 20mg Act taylor Social History Alcohol Screen Question Answer Notes Did you have a drink contain ing alcohol in the past year? Yes How often did you have a dri nk containing alcohol in the past year? 2 to 4 times a month (2 points) How many drinks did you have on a typical day when you were drinking in the past year? 1 or 2 drinks (0 point) How often did you have 6 or more drinks on one occasion in the past year? Never (0 point) Points 2 Interpretation Negative Section Notes: Nonsmoker; occ. drinks on we ekend Nonsmoker; occ. drinks on we ekend Problems Problem Type SNOMED Code ICD Code Onset Dates Problem Status W/U Status Risk Notes Problem [id number] Blood in stool (K92.1) Active confirmed Problem 40889947 Constipation, unspecified constipation type (K59.00) Active confirmed Plan Of Treatment Future Test Test Name Order Date COLONOSCOPY 10/20/2016 Insurance Providers Payer Name Payer Address Payer Phone Subscriber Number Group Number Insured Name Patient Relationship to Insured Coverage Start Date Coverage End Date MEDICARE OF [place] [address] [place] [address] [id number] EUSEBIO SABA Self - patient is the insured [facility] INDEMNITY [address] [place] [address] [id number] [id number] Self - patient is the insured Medical (General) History Medical History History ICD Code Negative colonoscopy in 1998 and 03/24/2008 except for diverticulosis and internal hemorrhoids Takes Lexapro and Lorazepam for sleep di sturbance and depression Hyperlipidemia Denies MT,DM,CVA,Lung disease,renal dise ase Surgical History Surgery Date(Month/Year) BREAST BIOPSY-BENIGN
== END 2024-11-12 16:38 | disposition home or self-care (01) ==
LOC: HO.CT 16:37
PROVIDERS: PCP Internal Medicine; Visit Provider Otolaryngology
DX: J33.0 Polyp of nasal cavity (principal)
CPT/HCPCS: 70486

== ENCOUNTER → 2024-11-12 16:49 | Outpatient (BNV) | payer MEDICARE, OTHER, SELFPAY | PROVIDERS: PCP Internal Medicine; Visit Provider Radiology Diagnostic Radiology | DX: J33.0 Polyp of nasal cavity (principal) | CPT/HCPCS: 70486 ==

== ENCOUNTER 2025-02-12 13:56 | Outpatient (REF) | payer MEDICARE, OTHER, SELFPAY ==
[2025-02-12 14:07] LABS: MANUAL DIFF FLAG NO
[2025-02-12 14:48] LABS: Hematocrit 38.2 % (37.0-47.0); Hemoglobin 12.1 g/dl (12.0-16.0); Imm Gran Abs Auto 0.02 X10*3/uL (0.00-0.03); Imm Gran Pct Auto 0.3 % (0.0-0.4); Lymphocytes Absolute Auto 1.9 X10*3/uL (1.2-4.9); Mean Corpuscular HGB Conc 31.7 g/dl (31.0-35.0); Mean Corpuscular Hemoglobin 28.2 pg (27.0-33.0); Mean Corpuscular Volume 89.0 fL (80.0-98.0); NRBC Abs Auto 0.000 X10*3/uL (0.0-0.012); NRBC Pct Auto 0.0 /100WBC (0.0-0.2); Platelet Count 273 X10*3/uL (160-400); Red Blood Count 4.29 X10*6/uL (4.20-5.50); White Blood Count 6.5 X10*3/uL (4.8-10.8)
--- OUTSIDE RECORDS SUMMARY | 2025-02-12 17:43 | XMS_ITS ---
Author Name [facility] Organization Unknown Care Team Organization Name Specialty Phone Email Start Date End Da te [facility] Micheline Fowler Primary Care 03/08/2022 024
--- OUTSIDE RECORDS SUMMARY | 2025-02-12 17:43 | XMS_ITS | Patient Health Record ---
Author Organization [facility] Address [address] [place] [address] Care Team Providers Care Chemical Plant Worker Name Role Phone Leonila(inactive) Asa RAMEY Primary Care Provider U Fausto Obregon Unavailable [phone] Reason For Referral No Information Medications Medication SIG (Take, Route, Fr equency, Duration) Notes Start Date End Date Status Lexapro 20mg Active clonazePAM 0.5 MG (Schedule IV Drug) T JOSETTE 1/2 TO 1 TABLET BY MOUTH EVERY EVENING AT BEDTIME NEEDED FOR INSOMNIA Oral; Duration: 30 Active Simvastatin 20mg Act taylor Social [...] Problem Status W/U Status Risk Notes Problem Blood in stool (967077389) Blood in stool (K92.1) Active confirmed Problem Constipation (06965873) Constipation, unspecified constipation type (K59.00) Active confirmed Plan Of Treatment Future Test Test Name Order Date COLONOSCOPY 10/20/2016 Insurance Providers Payer Name Payer Address Payer Phone Subscriber Number Group Number Insured Name Patient Relationship to Insured Coverage Start Date Coverage End Date [place]ARE OF [place] [address] [place] [address] [id number] MCPHERSON Self - patient is the insured [facility] TH INDEMNITY [address] [place] [address] [id number] EUSEBIO SABA Self - patient is the insured Medical (General) History Medical History History ICD Code Negative colonoscopy in 1998 and 03/24/2008 except for diverticulosis and internal hemorrhoids Takes Lexapro and Lorazepam for sleep di sturbance and depression Hyperlipidemia Denies [place],DM,CVA,Lung disease,renal dise ase Surgical History Surgery Date(Month/Year) BREAST BIOPSY-BENIGN
[2025-02-13 07:59] LABS: Alanine Aminotransferase 16 U/L (0-31); Albumin Level 4.5 g/dL (3.5-5.0); Alkaline Phosphatase 59 U/L (39-117); Anion Gap 14 (12-20); Aspartate Amino Transferase 25 U/L (5-31); Blood Urea Nitrogen 28 mg/dL (9-16); Calcium 9.3 mg/dL (8.4-10.2); Carbon Dioxide 24 mmol/L (22-29); Chloride 105 mmol/L (96-108); Cholesterol 220 mg/dL (<200); Estimated Glomerular Filt Rate 50; HDL Cholesterol 84 mg/dL (>40); Potassium 4.5 mmol/L (3.3-5.1); Sodium 138 mmol/L (135-145); Total Protein 7.2 g/dL (6.5-8.0); Triglycerides 76 mg/dL (<150)
== END 2025-02-12 13:57 | disposition home or self-care (01) ==
LOC: HO.LAB 13:56
PROVIDERS: PCP Internal Medicine; Visit Provider Internal Medicine
DX: I12.9 Hypertensive chronic kidney disease with stage 1 through stage 4 chronic kidney disease, or unspecified chronic kidney disease (principal); N18.30 Chronic kidney disease, stage 3 unspecified
CPT/HCPCS: 36415; 80053; 80061; 85025

== ENCOUNTER 2025-02-13 11:37 | Outpatient (AMB) | payer MEDICARE, OTHER, SELFPAY ==
--- NOTE | 2025-02-13 11:45 | A.OFFPC_ITS ---
Vital Signs 02/13/25 11:52 Height 5 ft 3.5 in Weight 117 lb BMI 20.4 BP 128/78 Blood Pressure Location Lt brachial Position Sitting Respiration 17 Pulse 66 Pulse Source Pulse Oximeter Temp 97.8 F Temp Source Oral Pulse Oximetry (%) 98 Oxygen Delivery Method Room Air Intake Visit Reasons: 6m follow up Intake Note: Pt is here today for 6 months follow up visit. Allergies lisinopril Adverse Reaction (Intermediate, Verified 02/13/25 11:50) Cough seasonal Adverse Reaction (Severe, Uncoded 02/13/25 11:50) seasonal allergies Medication List - Last Reconciled 02/13/25 by Kristine Ribeiro MD albuterol sulfate 90 mcg/actuation 2 inhalations inhalation Q6H PRN 30 days alendronate (Fosamax) 70 mg PO QWEEK clonazepam mg PO diphenhydramine HCl (Benadryl) 50 mg PO BEDTIME escitalopram oxalate 20 mg PO DAILY fluticasone propion-salmeterol 250-50 mcg/dose (Wixela Inhub) 1 inh inhalation Q12H 30 days montelukast 10 mg PO DAILY olmesartan 20 mg PO DAILY simvastatin 20 mg PO DAILY Tobacco use date assessed: 02/13/25 Fall risk assessment: 1 Fall in past year Last assessed Fall Risk: 02/13/25 Dental Screening Dental Screen Date: 08/15/24 HPI 6m follow up HPI Details Pt presents for f/u HTN, hyperlipid, asthma, stable on meds. Patient has been under lot of stress related to her son with addiction problem and her 15-year-old grandson living with her and her . [facility] Medical History Osteoporosis Cough due to SAMSON inhibitor Murmur Normal colonoscopy Mammogram normal Annual physical exam Chronic allergic rhinitis Hypercholesteremia Chronic restrictive lung disease Asthma Surgical History Hx of section Family History Father Hypertension Mother No problems noted. Brother Mental health disorder Social History Housing: House Patient Tobacco Use Status: Never used Tobacco e-Cigarette/Vaping Use: Never Used service: No Current occupational status: retired Cognitive needs: No Hearing needs: No Vision needs: Yes Questionnaire PHQ-9 Over the last 2 weeks, how often have you been bothered by any of the following problems? 1. Little interest or pleasure in doing things: not at all 2. Feeling down, depressed, or hopeless: not at all 3. Trouble falling or staying asleep, or sleeping too much: not at all 4. Feeling tired or having little energy: not at all 5. Poor appetite or overeating: not at all 6. Feeling bad about yourself - or that you are a failure or have let yourself or your family down: not at all 7. Trouble concentrating on things, such as reading the newspaper or watching television: not at all 8. Moving or speaking so slowly that other people could have noticed. Or the opposite - being so fidgety or restless that you have been moving around a lot more than usual: not at all 9. Thoughts that you would be better off or of hurting yourself in some way: not at all Total score: 0 Depression Screening Interpretation: Negative Depression Screening Done: Yes Source: Developed by Drs. Bacilio Broderick, Sherin Ohara, Sameer Saeed and colleagues, with an educational lópez from [employer]. Thrive Questionnaire Date Thrive assessed: 08/08/24 I am a: Patient What is your living situation today?: I have a steady place to live Within the past 12 months, did the food you bought not last and you didn't have the money to get more?: Never true Within the past 12 months, did you worry whether your food would run out before you got money to buy more?: Never true Do you have trouble paying for medicines?: No Do you have trouble getting transportation to medical appointments?: No Do you have trouble paying your heating and electricity bill?: No Do you have trouble taking care of your child, family member or friend?: No Do you have trouble with day-to-day activities such as bathing, preparing meals, shopping, managing finances, etc.?: No Are you currently unemployed and looking for a job?: No Are you interested in more education?: No Please select the resources that you would like help with: None Currently or been in a relationship where the following occur: I choose not to answer THRIVE Score: 0 SALENA-7 AMB Questionnaire SALENA-7 Date SALENA - 7 assessed: 08/15/24 Feeling nervous, anxious, or on edge: 0 = Not at all Not being able to stop or control worryin = Not at all Worrying too much about different things: 0 = Not at all Trouble relaxin = Not at all Being so restless that it is hard to sit still: 0 = Not at all Becoming easily annoyed or irritable: 0 = Not at all Feeling afraid as if something awful might happen: 0 = Not at all Total SALENA-7 score (0-4 normal; 5-9 mild; 10-14 moderate; 15-21 severe): 0 Source: Developed by Drs. Bacilio Broderick, Sherin Ohara, Sameer Saeed and colleagues, with an educational lópez from [employer]. Review of Systems Const All systems reviewed & are unremarkable except as noted in HPI and below Eyes Reports no additional complaints ENT Reports no additional complaints Card Reports no additional complaints Resp Reports no additional complaints GI Reports no additional complaints Physical exam (Primary Care) Vital Signs: Last Vital Signs Temp 97.8 F 02/13/25 11:52 Pulse 66 02/13/25 11:52 Resp 17 02/13/25 11:52 BP 128/78 02/13/25 11:52 Pulse Ox 98 02/13/25 11:52 Oxygen Delivery Method Room Air 02/13/25 11:52 BMI result Body Mass Index 20.4 Tobacco/Smoking Status: Tobacco use Status Tobacco use date assessed 02/13/25 02/13/25 11:51 Patient Tobacco Use Status Never used Tobacco 02/13/25 11:45 e-Cigarette/Vaping Use Never Used 02/13/25 11:45 PHQ-9: PHQ-9 Score PHQ-9: Total score 0 02/13/25 12:29 Depression Screening Interpretation: Negative Thrive Assessment: Date of Thrive Assessment Date Thrive assessed 08/08/24 02/13/25 11:45 Currently or been in a relationship where the following occur: I choose not to answer Const General: no acute distress HENMT Head: Yes normal to inspection Face and sinus: Yes normal facial exam Throat: Yes posterior oropharynx normal Eyes General: appearance normal, both eyes and all related structures Neck Neck: Yes supple Resp Effort & Inspection: normal respiratory effort Auscultation: clear to auscultation bilaterally Cardio Rhythm: regular rhythm Heart sounds: S1 normal heart sound present and S2 normal heart sound present Coding Level of Care Code Est Pt Level 4 (95475) Diagnoses Hypercholesteremia E78.00 CKD (chronic kidney disease) stage 3, GFR 30-59 ml/min N18.30 Hypertension I10 Osteoporosis M81.0 Assessment & Plan Assessment & Plan (1) Hypercholesteremia: Code(s): E78.00 - Pure hypercholesterolemia, unspecified Category: Medical Plan: Continue simvastatin low-cholesterol diet discussed with the patient (2) CKD (chronic kidney disease) stage 3, GFR 30-59 ml/min: Code(s): N18.30 - Chronic kidney disease, stage 3 unspecified Category: Medical Plan: Monitor renal function avoid nephrotoxins (3) Hypertension: Comment: ACEI caused cough Code(s): I10 - Essential (primary) hypertension Category: Medical Plan: Continue olmesartan (4) Osteoporosis: Comment: T-score 2.9 L spine, DEXA ,Started on Fosamax 09/2023, Code(s): M81.0 - Age-related osteoporosis without current pathological fracture Category: Medical Plan: Continue vitamin-D Fosamax and weight-bearing exercises, follow-up in 6 months Orders: Orders Comprehensive [place]. Panel Fast 6 Months E78.00 - Pure hypercholesterolemia, unspecified, I10 - Essential (primary) hypertension, N18.30 - Chronic kidney disease, stage 3 unspecified Complete Blood Count Auto Diff 6 Months E78.00 - Pure hypercholesterolemia, unspecified, I10 - Essential (primary) hypertension, N18.30 - Chronic kidney disease, stage 3 unspecified Lipid Panel 6 Months E78.00 - Pure hypercholesterolemia, unspecified, I10 - Essential (primary) hypertension, N18.30 - Chronic kidney disease, stage 3 unspecified UA w Microscopic 6 Months E78.00 - Pure hypercholesterolemia, unspecified, I10 - Essential (primary) hypertension, N18.30 - Chronic kidney disease, stage 3 unspecified TSH reflex Free T4 6 Months E78.00 - Pure hypercholesterolemia, unspecified, I10 - Essential (primary) hypertension, N18.30 - Chronic kidney disease, stage 3 unspecified Vitamin D 25-OH Total 6 Months E78.00 - Pure hypercholesterolemia, unspecified, I10 - Essential (primary) hypertension, N18.30 - Chronic kidney disease, stage 3 unspecified
[2025-02-13 11:52] VITALS: BP 128/78; PULSE 66; RESP 17; TEMP 36.6; O2SAT 98; BMI 20.4
--- OUTSIDE RECORDS SUMMARY | 2025-02-13 14:58 | XMS_ITS | Patient Health Record ---
Author Organization [facility] Address [address] [place] [address] Care Team Providers Care Commanding Officer Motorized Squad Name Role Phone Leonila(inactive) Asa RAMEY Primary Care Provider U Fausto Obregon Unavailable [phone] Reason For Referral No Information Medications Medication [...] Status Risk Notes Problem Blood in stool (501112958) Blood in stool (K92.1) Active confirmed Problem Constipation (62792611) Constipation, unspecified constipation type (K59.00) Active confirmed Plan Of Treatment Future Test Test Name Order Date COLONOSCOPY 10/20/2016 Insurance Providers Payer Name Payer Address Payer Phone Subscriber Number Group Number Insured Name Patient Relationship to Insured Coverage Start Date Coverage End Date MED[place]ARE OF [place] [address] [place] [address] [id number] MCPHERSON Self - patient is the insured [facility] TH INDEMNITY [address] [place] [address] [id number] EUSEBIO SABA Self - patient is the insured Medical (General) History Medical History History ICD Code Negative colonoscopy in 1998 and 03/24/2008 except for diverticulosis and internal hemorrhoids Takes Lexapro and Lorazepam for sleep di sturbance and depression Hyperlipidemia Denies [place],DM,CVA,Lung disease,renal dise ase Surgical History Surgery Date(Month/Year) BREAST BIOPSY-BENIGN
== END 2025-02-13 13:40 | disposition home or self-care (01) ==
LOC: HO.HMCC 11:37
PROVIDERS: PCP Internal Medicine; Visit Provider Internal Medicine
DX: E78.00 Pure hypercholesterolemia, unspecified (principal); N18.30 Chronic kidney disease, stage 3 unspecified; I10 Essential (primary) hypertension; M81.0 Age-related osteoporosis without current pathological fracture

== ENCOUNTER → 2025-02-13 11:37 | Outpatient (BNVA) | payer MEDICARE, OTHER, SELFPAY | PROVIDERS: PCP Internal Medicine; Visit Provider Internal Medicine | DX: I12.9 Hypertensive chronic kidney disease with stage 1 through stage 4 chronic kidney disease, or unspecified chronic kidney disease (principal); N18.30 Chronic kidney disease, stage 3 unspecified; E78.5 Hyperlipidemia, unspecified; J45.909 Unspecified asthma, uncomplicated; E78.00 Pure hypercholesterolemia, unspecified; M81.0 Age-related osteoporosis without current pathological fracture; Z79.899 Other long term (current) drug therapy | CPT/HCPCS: 96127; 99212 ==

== ENCOUNTER 2025-04-01 15:43 | Outpatient (REF) | payer MEDICARE, OTHER, SELFPAY ==
--- NOTE | ~2025-04-01 | US_ITS ---
EXAMINATION: US RETROPERITONEAL LIMITED (RENAL ONLY) CLINICAL INFORMATION: Kidney stone. COMPARISON: Previous renal ultrasound most recent January 2024 TECHNIQUE: Real-time imaging of the kidneys. FINDINGS: RIGHT KIDNEY: 9.3 x 4.4 x 4.3 cm (SAG x AP x TRV). The kidney is normal in size, contour, and echogenicity. Renal cortical thickness is normal. No calculi or focal parenchymal lesions. No hydronephrosis. LEFT KIDNEY: 8.4 x 4.2 x 4 cm (SAG x AP x TRV). The kidney is normal in size, contour, and echogenicity. Renal cortical thickness is normal. 2 mm bright echogenic focus probably representing a stone in the midpole. No focal parenchymal lesions. No hydronephrosis. US/US renal BI IMPRESSION: Probable small left renal stone. Electronically signed by: Micheline Archibald MD 04/01/2025 05:37 PM [facility] [place]
== END 2025-04-01 15:44 | disposition home or self-care (01) ==
LOC: HO.HMGCX 15:43
PROVIDERS: PCP Internal Medicine; Visit Provider Nurse Practitioner Family
DX: N20.0 Calculus of kidney (principal)
CPT/HCPCS: 76775

== ENCOUNTER → 2025-04-01 15:45 | Outpatient (BNV) | payer MEDICARE, OTHER, SELFPAY | PROVIDERS: PCP Internal Medicine; Visit Provider Radiology Diagnostic Radiology | DX: N20.0 Calculus of kidney (principal) | CPT/HCPCS: 76775 ==

== ENCOUNTER 2025-04-03 11:40 | Outpatient (AMB) | payer MEDICARE, OTHER, SELFPAY ==
--- NOTE | 2025-04-03 11:43 | A.OFFVIS_ITS ---
Intake Visit Reasons: 1Y/UA Intake Note: Patient is present for 1Y/UA/US IMAGIN04/01/25 Urology Medication:NONE Antibiotic Allergy:NONE Blood Thinner:NONE Photo Mask Pattern Generator Required: No Allergies lisinopril Adverse Reaction (Intermediate, Verified 04/03/25 13:44) Cough seasonal Adverse Reaction (Severe, Uncoded 04/03/25 13:44) seasonal allergies Medication List - Last Reconciled 04/03/25 by ERWIN BrownP- albuterol sulfate 90 mcg/actuation 2 inhalations inhalation Q6H PRN 30 days alendronate (Fosamax) 70 mg PO QWEEK clonazepam mg PO diphenhydramine HCl (Benadryl) 50 mg PO BEDTIME escitalopram oxalate 20 mg PO DAILY fluticasone propion-salmeterol 250-50 mcg/dose (Wixela Inhub) 1 inh inhalation Q12H 30 days montelukast 10 mg PO DAILY olmesartan 20 mg PO DAILY pyridoxine (vitamin B6) 100 mg PO DAILY 90 days simvastatin 20 mg PO DAILY HPI Comments Details: Rosa is a pleasant 74-year-old female patient of Dr. Ribeiro. She has a past medical history of murmur, osteopenia, allergic rhinitis, hypercholesteremia, COPD, and asthma. She presents to the office today for follow-up of her nephrolithiasis. In discussion with the patient today she reports to be doing and feeling well. She discusses back in October she broke her foot however has since recovered and has been doing well. Recent renal imaging results reviewed with the patient today. 04/24 bilateral kidneys are normal in size, contour, and echogenicity. Renal cortical thickness is normal bilaterally. No parenchymal lesions or hydronephrosis noted bilaterally. 2 mm echogenic focus potentially representing a kidney stone in the mid pole of the left kidney. She does discuss having changed her diet throughout the summer as she had been more homebound due to her broken foot and believes she was consuming increased amounts of nut We did discussed correlation of nuts as a source of calcium oxalate. She denies any bothersome urinary issues. She denies urinary urgency, urinary frequency, incontinence, nocturia, hematuria, dysuria, foul smelling urine, changes to urinary stream, flank pain, fever, and or chills. She is happy with her current voiding parameters. Patient otherwise denies any other issues or concerns at this time. [facility] Medical History Osteoporosis Cough due to SAMSON inhibitor Murmur Normal colonoscopy Mammogram normal Annual physical exam Chronic allergic rhinitis Hypercholesteremia Chronic restrictive lung disease Asthma Surgical History Hx of section Family History Father Hypertension Mother No problems noted. Brother Mental health disorder Social History Housing: House Patient Tobacco Use Status: Never used Tobacco e-Cigarette/Vaping Use: Never Used service: No Current occupational status: retired Cognitive needs: No Hearing needs: No Vision needs: Yes Review of Systems Eyes Reports no additional complaints ENT Reports no additional complaints Card Reports as per HPI Resp Reports as per HPI GI Reports no additional complaints Reports as per HPI Musc Reports no additional complaints Neuro Reports no additional complaints Psych Reports no additional complaints Endo Reports no additional complaints Ty/Lymph Reports no additional complaints Aller/Immun Reports no additional complaints Physical Exam Const General: cooperative, healthy appearing, comfortable, no acute distress, well developed, alert and awake Nutritional Appearance: average body habitus Orientation/consciousness: patient oriented x3 Limitations: no limitations HEENT Head: Yes normal to inspection, Yes normocephalic and Yes atraumatic Ears: hearing grossly normal bilaterally Eyes General: appearance normal, both eyes and all related structures Neck Neck: Yes normal visual inspection and Yes trachea midline Chest Chest palpation & inspection: normal inspection of the chest Resp Effort & Inspection: normal respiratory effort and able to speak in complete sentences Cardio Rate: regular rate GI Inspection: Yes normal to inspection General: Yes no CVA tenderness Back/Spine/Pelvis Back: no CVA tenderness Skin General skin exam: no rashes or lesions noted Neuro General: patient oriented x3 Extrem General: Yes normal to inspection Psych Appearance: grossly normal and well kempt Mental Status: mental status grossly normal Speech and movement: Normal speech and movement present and Clear speech present Affect: normal affect Attitude: cooperative Thought process: Normal thought process present Thought content: Normal thought content present Insight: Fair insight present (Psych) Judgement: Fair judgement present (Psych) Results Reviewed Results Reviewed: Date of Service: 04/01/25 Procedure(s): US renal BI FINDINGS: RIGHT KIDNEY: 9.3 x 4.4 x 4.3 cm (SAG x AP x TRV). The kidney is normal in size, contour, and echogenicity. Renal cortical thickness is normal. No calculi or focal parenchymal lesions. No hydronephrosis. LEFT KIDNEY: 8.4 x 4.2 x 4 cm (SAG x AP x TRV). The kidney is normal in size, contour, and echogenicity. Renal cortical thickness is normal. 2 mm bright echogenic focus probably representing a stone in the midpole. No focal parenchymal lesions. No hydronephrosis. IMPRESSION: Probable small left renal stone. Assessment & Plan Assessment & Plan (1) Nephrolithiasis: Comment: small nonobstructing kidney stone on US 02/19, recheck in 6 months Code(s): N20.0 - Calculus of kidney Category: Medical Plan Recent renal imaging results reviewed with the patient today; as noted above. Patient denies any bothersome urinary issues or concerns at this time. Educated, encouraged, and instructed on the importance of drinking plenty of water daily. Continue adding 1 oz of lemon juice to water daily. Renal ultrasound in 6 months Will restart vitamin B6. We discussed foods high in calcium oxalate Patient reports be happy with current voiding parameters. Follow-up in 6 months with imaging to be completed prior; or sooner with any issues, concerns, and or questions. Orders: Orders AMB Urinalysis Automated Today Z13.9 - Encounter for screening, unspecified US renal BI 6 Months N20.0 - Calculus of kidney Medications: New pyridoxine (vitamin B6) 100 mg PO DAILY 90 tabs 1RF 90 days Patient Instructions: The patient had an opportunity to ask questions regarding the treatment plan. All questions were answered. Physical exam, labs, and imaging were discussed and reviewed in detail. As well as risks, benefits, and discussion of treatment choices. No major barriers to understanding were identified. The patient expressed understanding and agreement with the above treatment plan. The patient was made aware they should contact our office by phone for worsening of their current condition, the appearance of new symptoms, or with any questions or concerns. Compliance is encouraged with any medications and follow up testing that is ordered. It is a privilege to be allowed the opportunity to participate in? your urological care.? Again, if you have any questions or concerns If you have any questions or concerns please do not hesitate to contact me. The office is [phone]. This note is constructed using voice recognition software. While every effort has been made to ensure accuracy ambulance attendant errors may have been included. Yours sincerely, DIMPLE Brown Coding Level of Care Code Est Pt Level 3 (80201) Complex visit Add On G2211 Diagnoses Nephrolithiasis N20.0
== END 2025-04-03 12:26 | disposition home or self-care (01) ==
LOC: HO.HUSH 11:40
PROVIDERS: PCP Internal Medicine; Visit Provider Nurse Practitioner Family
DX: N20.0 Calculus of kidney (principal)
CPT/HCPCS: 99213; G2211

== ENCOUNTER → 2025-04-03 11:40 | Outpatient (BNVA) | payer MEDICARE, OTHER, SELFPAY | PROVIDERS: PCP Internal Medicine; Visit Provider Nurse Practitioner Family | DX: Z71.2 Person consulting for explanation of examination or test findings (principal); N20.0 Calculus of kidney | CPT/HCPCS: 99212 ==

== ENCOUNTER 2025-04-14 10:16 | Outpatient (AMB) | payer MEDICARE, OTHER, SELFPAY ==
[2025-04-14 11:04] VITALS: BP 127/68; PULSE 66; TEMP 36.5; O2SAT 97; BMI 21.1
--- NOTE | 2025-04-14 11:04 | MHC.OFFWIV ---
Intake Vital Signs 04/14/25 11:04 Height 5 ft 3 in Weight 119 lb BMI 21.1 BP 127/68 Blood Pressure Location Lt brachial Position Sitting Pulse 66 Pulse Source Pulse Oximeter Temp 97.7 F Temp Source Oral Pulse Oximetry (%) 97 Oxygen Delivery Method Room Air Intake Visit Reasons: EP Possible sinus infection Intake Note: pt is here for sinus pressure, congestion ongoing for 2 weeks Patient Tobacco Use Status: Never used Tobacco Allergies lisinopril Adverse Reaction (Intermediate, Verified 04/14/25 11:05) Cough seasonal Adverse Reaction (Severe, Uncoded 04/03/25 13:44) seasonal allergies Do you need a note to return to daycare/school/sports/work: No HPI HPI Comments History of Present Illness Details History of Present Illness - The patient is a 74-year-old female presenting with a suspected sinus infection. - Her symptoms began over two weeks ago and include sinus pain, pressure, constant sneezing, and lack of energy. - She initially suspected a cold, but noted green sputum production with coughing yesterday, leading her to believe it is an infection. - She denies any fever but reports a pressure-type headache. - For self-treatment, she has been taking Arabella-[place] daytime and nighttime formulations. - She reports a history of frequent sinus infections and has previously used Z-Jean Pierre with variable results and reports that prednisone helps significantly. - She has a history of seeing an barrel and receiver aligner for years for allergy shots, which were not effective, and has had imaging of her sinuses in the past. - She denies fever, chills, cough, post nasal drip, CP, SOB, abd pain, n/v/d. Physical Exam General: Cooperative, healthy appearing, comfortable, no acute distress and well developed Head: Normal to inspection Ears: Hearing grossly normal bilaterally. No tragus or mastoid tenderness noted. Auditory canals clear bilaterally. TM's normal, not bulging. No fluid noted. Nose: Normal external nose present. Moist mucosa. Turbinates normal bilaterally, not boggy. Face and sinus: Tenderness to palpation of the frontal and maxillary sinuses bilaterally. Neck: Normal visual inspection and Yes full ROM. No lymphadenopathy noted. Respiratory: Normal respiratory effort and able to speak in complete sentences. Clear to auscultation bilaterally Cardiovascular: Regular rate and rhythm. Normal S1 and S2 GI: Normal to inspection. Soft to palpation and nontender, nondistended. No guarding noted. Skin: No rashes or lesions noted [facility] Medical History Osteoporosis Cough due to SAMSON inhibitor Murmur Normal colonoscopy Mammogram normal Annual physical exam Chronic allergic rhinitis Hypercholesteremia Chronic restrictive lung disease Asthma Surgical History Hx of section Family History Father Hypertension Mother No problems noted. Brother Mental health disorder Social History Housing: House Patient Tobacco Use Status: Never used Tobacco e-Cigarette/Vaping Use: Never Used service: No Current occupational status: retired Cognitive needs: No Hearing needs: No Vision needs: Yes Review of Systems Const All systems reviewed & are unremarkable except as noted in HPI and below Physical Exam Vital Signs: Last Vital Signs Temp 97.7 F 04/14/25 11:04 Pulse 66 04/14/25 11:04 BP 127/68 04/14/25 11:04 Pulse Ox 97 04/14/25 11:04 Oxygen Delivery Method Room Air 04/14/25 11:04 BMI result Body Mass Index 21.1 Assessment & Plan Assessment & Plan (1) Sinusitis: Code(s): J32.9 - Chronic sinusitis, unspecified Qualifiers: Sinusitis location: frontal Chronicity: acute Recurrence: recurrent Qualified Code(s): J01.11 - Acute recurrent frontal sinusitis Plan Most likely sinusitis plan - tylenol or motrin as needed for pain - steam showers - flonase and zyrtec d daily - will start her on Augmentin BID for 7 days - prednisone for 5 days - will need an ENT referral - follow up with PCP Medications: New prednisone 40 mg (2 x 20 mg) PO DAILY 10 tabs 0RF 5 days amoxicillin-pot clavulanate 875-125 mg 1 tab PO Q12H 14 tabs 0RF cetirizine-pseudoephedrine 5-120 mg ER 1 tab PO BID 14 tabs 0RF 7 days fluticasone propionate 50 mcg/actuation administer into each nostril 1 spray intranasal Q12H 16 grams 0RF Coding Level of Care Code Est Pt Level 3 (82803) Diagnoses Acute recurrent frontal sinusitis J01.11 Sinusitis location: frontal Chronicity: acute Recurrence: recurrent
== END 2025-04-14 11:35 | disposition home or self-care (01) ==
PROVIDERS: PCP Internal Medicine; Visit Provider Physician Assistant Medical
DX: J01.11 Acute recurrent frontal sinusitis (principal)

== ENCOUNTER → 2025-04-14 10:16 | Outpatient (BNVA) | payer MEDICARE, OTHER, SELFPAY | PROVIDERS: PCP Internal Medicine; Visit Provider Physician Assistant Medical | DX: J01.11 Acute recurrent frontal sinusitis (principal) | CPT/HCPCS: 99212 ==